=== PATIENT | female | born 1960 | race Caucasian/White ===

== ENCOUNTER 2018-08-12 11:22 | Emergency (ER) | payer OTHER ==
[2018-08-12 11:53] LABS: BASO % 0.5 % (0.0-1.0); EOS # 0.1 10^3/uL (0.0-0.50); EOS % 1.5 % (0.0-3.0); HEMATOCRIT 45.5 % (36.0-47.0); HEMOGLOBIN 14.4 g/dl (12.0-15.5); IMMATURE GRANULOCYTE % 0.7 % (0-3.0); MEAN CORPUSCULAR HEMOGLOBIN 28.3 pg (27.0-33.0); MEAN CORPUSCULAR HGB CONC 31.6 g/dl (32.0-36.5); MEAN CORPUSCULAR VOLUME 89.6 fl (80.0-96.0); MONO # 0.5 10^3/uL (0.0-0.8); MONO % 8.3 % (0.0-5.0); NEUTROPHILS # 4.2 10^3/uL (1.8-7.7); PLATELET COUNT, AUTOMATED 156 10^3/uL (150-450); RED BLOOD COUNT 5.08 10^6/uL (4.00-5.40); RED CELL DISTRIBUTION WIDTH 13.9 % (11.5-14.5); WHITE BLOOD COUNT 5.8 10^3/uL (4.0-10.0)
[2018-08-12 12:07] LABS: INR 0.86; PROTHROMBIN TIME 11.8 SECONDS (12.1-14.4)
[2018-08-12 12:08] LABS: PARTIAL THROMBOPLASTIN TIME 27.7 SECONDS (25.4-37.6)
[2018-08-12] MEDS: ASPIRIN 81 MG CHEW TABLET PO (12:14)
[2018-08-12 12:29] LABS: ALBUMIN 3.8 GM/DL (3.2-5.2); ALBUMIN/GLOBULIN RATIO 1.15 (1.00-1.93); ALKALINE PHOSPHATASE 90 U/L (45-117); ALT/SGPT 29 U/L (12-78); ANION GAP 6 MEQ/L (8-16); AST/SGOT 19 U/L (7-37); BILIRUBIN,DIRECT 0.2 MG/DL (0.0-0.2); BILIRUBIN,TOTAL 0.6 MG/DL (0.2-1.0); BLOOD UREA NITROGEN 9 MG/DL (7-18); CARBON DIOXIDE LEVEL 29 MEQ/L (21-32); CHLORIDE LEVEL 106 MEQ/L (98-107); CPK CREATINE PHOSPHOKINASE 85 U/L (26-192); CREATININE FOR GFR 0.65 MG/DL (0.55-1.30); FREE T4 0.89 NG/DL (0.76-1.46); GLOMERULAR FILTRATION RATE > 60.0 (>51); GLUCOSE, FASTING 84 MG/DL (70-100); LIPASE 105 U/L (73-393); MB/CK RELATIVE INDEX 1.53 (< OR =4); NT-PRO BNP 53 PG/ML (<125); POTASSIUM SERUM 4.4 MEQ/L (3.5-5.1); SODIUM LEVEL 141 MEQ/L (136-145); THYROID STIMULATING HORMONE 0.792 uIU/ML (0.358-3.740); TOTAL PROTEIN 7.1 GM/DL (6.4-8.2); TROPONIN I < 0.02 NG/ML (< 0.10)
[2018-08-12] MEDS ORDERED: ISOVUE-370 76% 100ML VIAL (Q9967) As Ordered (13:01)
[2018-08-12 15:37] LABS: CPK CREATINE PHOSPHOKINASE 76 U/L (26-192); MB/CK RELATIVE INDEX 1.45 (< OR =4); TROPONIN I < 0.02 NG/ML (< 0.10)
== END 2018-08-12 16:31 | disposition home or self-care (01) ==
LOC: M ED 11:22
DX: R07.89 Other chest pain (principal); T74.11XA Adult physical abuse, confirmed, initial encounter; Y07.03 Male partner, perpetrator of maltreatment and neglect; E11.9 Type 2 diabetes mellitus without complications; I10 Essential (primary) hypertension; J45.909 Unspecified asthma, uncomplicated; Z95.0 Presence of cardiac pacemaker; Z88.1 Allergy status to other antibiotic agents; Z91.048 Other nonmedicinal substance allergy status; Z79.899 Other long term (current) drug therapy; Z79.51 Long term (current) use of inhaled steroids
CPT/HCPCS: Q9967

== ENCOUNTER 2019-04-10 13:31 | Emergency (ER) | payer OTHER ==
[~2019-04-10] VITALS: Ht 167.6 cm; Wt 136.4 kg
[~2019-04-10 13:31] MED LIST: ADV250INH INH; ALBU17IN2 INH; AVEL1TAB3 PO; CALCTAB22; CALCTAB63 PO; CETI10TA; FLUO0.0114 AU; FURO20TA2 PO; KLOR1TAB69 PO; LASIX; M-VI27TA PO; MAALSUS8 PO; MECL1CHW PO; MIRA3350 PO; MIRALAX; PEPC20TA2; PERC5TAB8; POTA-77; PRED20TA PO; PRIL40CA PO; ROBISYP5 PO; TYLE325T5 PO; [UNRECOGNIZED DRUG - MIXTURE] PO; [UNRECOGNIZED DRUG - OTHER]
[2019-04-10] MEDS ORDERED: LORazepam 2 MG/ML VIAL (J2060) IV STA (14:38)
[2019-04-10] MEDS: IPRATROPIUM 0.5MG/ALBUTEROL 2.5MG INH SOL UD 3ML (DUONEB)(J7620) NEB SCH ×3 (15:03→15:57)
--- NOTE | 2019-04-10 15:38 | ECGEPIP ---
Stationary ECG Study [facility] - ED Test Date: 2019-04-10 Pat Name: TAHIR DON Department: Room: - Gender: F Management Coordinator: TIERA : 1960 Requested By: Srinivasa Rangel Order Number: [id number] Reading MD: Anne Ford Measurements Intervals [place] Rate: 87 P: 56 [place]: 131 QRS: 20 QRSD: 94 T: 44 QT: 355 QTc: 428 Interpretive Statements SINUS RHYTHM NSTTW ABNORMALITY INCREASED RATE 08/12/18 Electronically Signed On 04-10-2019 15:38:16 EDT by Anne Ford
[2019-04-10 17:09] VITALS: BP 144/65
[2019-04-10] MEDS ORDERED: MELO15TA28 PO (17:11)
[2019-04-10] MEDS ORDERED: BREO1INH3 INH (17:11)
[2019-04-10] MEDS ORDERED: PRED20TA PO (17:17)
== END 2019-04-10 17:35 | disposition home or self-care (01) ==
LOC: M ED 13:31
DX: J45.901 Unspecified asthma with (acute) exacerbation (principal); Z57.39 Occupational exposure to other air contaminants; G47.33 Obstructive sleep apnea (adult) (pediatric); E11.9 Type 2 diabetes mellitus without complications; I10 Essential (primary) hypertension; E78.5 Hyperlipidemia, unspecified; E66.9 Obesity, unspecified; Z87.891 Personal history of nicotine dependence; Z95.0 Presence of cardiac pacemaker; Z91.048 Other nonmedicinal substance allergy status; Z88.1 Allergy status to other antibiotic agents; Z79.899 Other long term (current) drug therapy; Z79.51 Long term (current) use of inhaled steroids
CPT/HCPCS: 93005; 94640; 96374; 99285; J2060

== ENCOUNTER 2019-04-30 13:39 | Emergency (ER) | payer OTHER ==
[~2019-04-30] VITALS: Ht 167.6 cm; Wt 136.4 kg
[~2019-04-30 13:39] MED LIST changes: +BREO1INH3 INH; +MELO15TA28 PO
[2019-04-30 14:27] LABS: BASO % 0.2 % (0.0-1.0); EOS % 0.1 % (0.0-3.0); HEMATOCRIT 39.4 % (36.0-47.0); HEMOGLOBIN 12.8 g/dl (12.0-15.5); LYMPH # 0.8 10^3/uL (1.5-4.5); LYMPH % 6.9 % (24.0-44.0); MEAN CORPUSCULAR HEMOGLOBIN 29.3 pg (27.0-33.0); MEAN CORPUSCULAR HGB CONC 32.5 g/dl (32.0-36.5); MEAN CORPUSCULAR VOLUME 90.2 fl (80.0-96.0); MONO # 0.7 10^3/uL (0.0-0.8); MONO % 6.3 % (0.0-5.0); NEUTROPHILS # 9.7 10^3/uL (1.8-7.7); PLATELET COUNT, AUTOMATED 154 10^3/uL (150-450); RED BLOOD COUNT 4.37 10^6/uL (4.00-5.40); WHITE BLOOD COUNT 11.3 10^3/uL (4.0-10.0)
[2019-04-30] MEDS ORDERED: IPRATROPIUM 0.5MG/ALBUTEROL 2.5MG INH SOL UD 3ML (DUONEB)(J7620) NEB ONE (14:30)
[2019-04-30] MEDS ORDERED: methylPREDNISolone INJ 125 MG/2 ML VIAL (J2930) IV ONE (14:30)
[2019-04-30] MEDS ORDERED: ALBUTEROL SULFATE 2.5 MG/0.5 ML INH NEB SOLN NEB ONE (14:30)
[2019-04-30 14:40] LABS: ABG BASE EXCESS 1.7 (-2.0-2.0); ABG HCO3 25.6 MEQ/L (22.0-26.0); ABG O2 SATURATION 95.8 % (95.0-99.0); ABG PARTIAL PRESSURE CO2 37.8 mmHg (35.0-45.0); ABG PARTIAL PRESSURE O2 76.6 mmHg (75.0-100.0); ABG TOTAL CO2 26.8 MEQ/L (22.0-29.0); ABG pH (ARTERIAL) 7.449 UNITS (7.350-7.450)
[2019-04-30 14:52] LABS: BLOOD UREA NITROGEN 9 MG/DL (7-18); CALCIUM LEVEL 8.4 MG/DL (8.5-10.1); CARBON DIOXIDE LEVEL 26 MEQ/L (21-32); CHLORIDE LEVEL 108 MEQ/L (98-107); CPK CREATINE PHOSPHOKINASE 61 U/L (26-192); CREATININE FOR GFR 0.69 MG/DL (0.55-1.30); GLOMERULAR FILTRATION RATE > 60.0 (>51); GLUCOSE, FASTING 111 MG/DL (70-100); MB/CK RELATIVE INDEX 1.64 (< OR =4); NT-PRO BNP 345 PG/ML (<125); POTASSIUM SERUM 4.2 MEQ/L (3.5-5.1); SODIUM LEVEL 143 MEQ/L (136-145)
--- NOTE | 2019-04-30 15:08 | REP ---
Clinical: Cough and shortness of breath . Comparison: 10/17/2018 . Technique: AP and lateral. Findings: The mediastinum and cardiac silhouette are normal. The lung dumont are clear and without acute consolidation, effusion, or pneumothorax. The skeletal structures are intact and normal. Impression: 1. No definite acute cardiopulmonary process. Electronically Signed by Joao Mcmahan MD 04/30/2019 03:00 P
[2019-04-30 15:49] LABS: TROPONIN I < 0.02 NG/ML (< 0.10)
[2019-04-30 16:30] VITALS: BP 136/78
[2019-04-30] MEDS ORDERED: PRED10TA2 PO (16:30)
[2019-04-30] MEDS ORDERED: AUGM875T28 PO (16:30)
--- NOTE | 2019-04-30 19:42 | ECGEPIP ---
[facility] - ED Test Date: 2019-04-30 Pat Name: TAHIR DON Department: Room: - Gender: Female Event Set Up Specialist: JRosa : 1960 Requested By: Delia Valles Order Number: [id number] Reading MD: Deila Valles Measurements Intervals [place] Rate: 104 P: 4 [place]: 135 QRS: QRSD: 89 T: 46 QT: 325 QTc: 428 Interpretive Statements ELECTRONIC VENTRICULAR PACEMAKER DEMAND ABNORMAL RHYTHM ECG NONSPECIFIC ST T WAVE CHANGES 04/10/[address] T WAVE CHANGES Electronically Signed on 04-30-2019 19:41:48 EDT by Delia Valles
== END 2019-04-30 16:56 | disposition home or self-care (01) ==
LOC: M ED 13:39
DX: J45.901 Unspecified asthma with (acute) exacerbation (principal); J01.90 Acute sinusitis, unspecified; Z98.84 Bariatric surgery status; Z88.1 Allergy status to other antibiotic agents; Z91.048 Other nonmedicinal substance allergy status; Z79.899 Other long term (current) drug therapy; Z87.891 Personal history of nicotine dependence
CPT/HCPCS: 36415; 36600; 71046; 80048; 82550; 82553; 82803; 83880; 84484; 85025; 93005; 94640; 96374; 99285; J2930

== ENCOUNTER → 2019-06-05 | Outpatient (REF) | payer OTHER ==
[~2019-06-05] MED LIST changes: +AUGM875T28 PO; +PRED10TA2 PO
[2019-06-05 13:35] LABS: BASO % 0.8 % (0.0-1.0); EOS # 0.1 10^3/uL (0.0-0.50); EOS % 1.1 % (0.0-3.0); HEMATOCRIT 46.1 % (36.0-47.0); HEMOGLOBIN 15.1 g/dl (12.0-15.5); LYMPH # 1.3 10^3/uL (1.5-4.5); LYMPH % 28.3 % (24.0-44.0); MEAN CORPUSCULAR HEMOGLOBIN 30.6 pg (27.0-33.0); MEAN CORPUSCULAR HGB CONC 32.8 g/dl (32.0-36.5); MEAN CORPUSCULAR VOLUME 93.5 fl (80.0-96.0); MONO # 0.4 10^3/uL (0.0-0.8); MONO % 9.1 % (0.0-5.0); NEUTROPHILS # 2.9 10^3/uL (1.8-7.7); NEUTROPHILS % 60.1 % (36.0-66.0); RED BLOOD COUNT 4.93 10^6/uL (4.00-5.40); WHITE BLOOD COUNT 4.7 10^3/uL (4.0-10.0)
[2019-06-08 14:22] LABS: D001-IgE D pteronyssinus 3.15 kU/L (Class III); G002-IgE Bermuda Grass < 0.10 kU/L (Class 0); G008-IgE Kentucky Bluegrass < 0.10 kU/L (Class 0); M001-IgE Penicillium chrysogen < 0.10 kU/L (Class 0); M002 IgE Cladosporium herbaru < 0.10 kU/L (Class 0); M003 IgE Aspergillus fumigatu < 0.10 kU/L (Class 0); M006-IgE Alternaria alternata < 0.10 kU/L (Class 0); T001-IgE Maple/Box Elder < 0.10 kU/L (Class 0); T003-IgE Common Silver Birch < 0.10 kU/L (Class 0); T006-IgE Cedar, Mountain < 0.10 kU/L (Class 0); T007-IgE Oak, White < 0.10 kU/L (Class 0); T008-IgE Elm, American < 0.10 kU/L (Class 0); T015-IgE Ash, White < 0.10 kU/L (Class 0); T041-IgE Hickory, White < 0.10 kU/L (Class 0); T070-IgE White Mulberry < 0.10 kU/L (Class 0); W001-IgE Ragweed, Short < 0.10 kU/L (Class 0); W009-IgE Plantain, English < 0.10 kU/L (Class 0); W014-IgE Pigweed, Rough < 0.10 kU/L (Class 0); W018-IgE Sheep Sorrel < 0.10 kU/L (Class 0)
== END ==
LOC: M LAB REF 13:14
PROVIDERS: ATTEND Internal Medicine Pulmonary Disease
DX: J45.50 Severe persistent asthma, uncomplicated (principal)

== ENCOUNTER 2019-07-16 16:44 | Emergency (ER) | payer OTHER ==
[~2019-07-16] VITALS: Ht 167.6 cm; Wt 145.0 kg
[2019-07-16] MEDS ORDERED: ADV500INH INH (16:54)
[2019-07-16] MEDS ORDERED: MORPHINE 4 MG/ML 1ML VIAL/SYRINGE (J2270) IV ONE (17:15)
[2019-07-16] MEDS ORDERED: ONDANSETRON 4MG/2ML VIAL (J2405) IV ONE (17:15)
[2019-07-16 17:47] LABS: BASO % 0.5 % (0.0-1.0); EOS # 0.1 10^3/uL (0.0-0.50); EOS % 1.7 % (0.0-3.0); HEMATOCRIT 42.4 % (36.0-47.0); HEMOGLOBIN 13.1 g/dl (12.0-15.5); LYMPH # 1.3 10^3/uL (1.5-4.5); MEAN CORPUSCULAR HEMOGLOBIN 28.4 pg (27.0-33.0); MEAN CORPUSCULAR HGB CONC 30.9 g/dl (32.0-36.5); MEAN CORPUSCULAR VOLUME 91.8 fl (80.0-96.0); MONO # 0.5 10^3/uL (0.0-0.8); MONO % 8.5 % (0.0-5.0); NEUTROPHILS # 4.4 10^3/uL (1.8-7.7); PLATELET COUNT, AUTOMATED 250 10^3/uL (150-450); RED BLOOD COUNT 4.62 10^6/uL (4.00-5.40); WHITE BLOOD COUNT 6.3 10^3/uL (4.0-10.0)
[2019-07-16 18:06] LABS: BLOOD UREA NITROGEN 10 MG/DL (7-18); CALCIUM LEVEL 8.8 MG/DL (8.5-10.1); CARBON DIOXIDE LEVEL 29 MEQ/L (21-32); CHLORIDE LEVEL 107 MEQ/L (98-107); CREATININE FOR GFR 0.84 MG/DL (0.55-1.30); GLOMERULAR FILTRATION RATE > 60.0 (>51); GLUCOSE, FASTING 99 MG/DL (70-100); POTASSIUM SERUM 4.4 MEQ/L (3.5-5.1); SODIUM LEVEL 143 MEQ/L (136-145)
[2019-07-16] MEDS ORDERED: CLINDAMYCIN 900 MG in APPROPRIATE DILUENT 1 EA IV ONE (19:00)
[2019-07-16] MEDS ORDERED: PERCOCET 5MG/325MG TAB PO ONE (20:30)
--- NOTE | 2019-07-16 21:04 | REPVR ---
EXAM: US Duplex Right Lower Extremity Veins, Limited EXAM DATE/TIME: 07/16/2019 8:23 PM CLINICAL HISTORY: 58 years old, female; Pain; Leg, upper and leg, lower; Right; Additional info: Rlight leg pain TECHNIQUE: Imaging protocol: Real-time Duplex ultrasound of the Right Lower Extremity with 2-D gilbert scale, color Doppler flow and spectral waveform analysis with image documentation. Limited exam was focused on the right lower extremity veins. COMPARISON: US Duplex, Ext,LOWER veins,unilat 10/06/2016 6:00 PM FINDINGS: Right deep veins: Unremarkable. The common femoral, femoral, proximal profunda femoral and popliteal veins are patent without thrombus. Normal Doppler waveforms. Normal compressibility and/or augmentation response. Some decrease in visualization of the femoral vein at Rick's canal secondary to the patient's inability to have this area compressed Right superficial veins: Unremarkable. Saphenofemoral junction is patent without thrombus. Soft tissues: Unremarkable. IMPRESSION: No acute findings. No evidence of deep vein thrombosis. Electronically signed by: Florian Joseph On 07/16/2019 21:03:56 PM
[2019-07-16] MEDS ORDERED: DOXY100C37 PO (22:11)
[2019-07-16] MEDS ORDERED: NAPR-837 PO (22:11)
[2019-07-16] MEDS ORDERED: OXYCODONE/APAP 5MG/325MG(BULK FOR ED) 1 TABLET PO ONE (22:15)
[2019-07-16] MEDS ORDERED: NAPROXEN 250 MG TAB PO ONE (22:15)
[2019-07-16 22:41] VITALS: BP 155/77
--- NOTE | 2019-07-17 12:04 | REP ---
RIGHT FOOT COMPLETE: 07/16/2019. Clinical history: Trauma, rule out fracture. Technique: Four views are provided. No prior foot series. Findings: Posterior calcaneus has plantar and Achilles insertion spurs unchanged from a prior tibia-fibula series 2 years ago. The talonavicular and calcaneocuboid joints are normal. Subtalar joints intact. Tarsal bones, metatarsals and phalanges were intact. No avulsion or fracture visible. Degenerative changes at the first MTP joint and some of the IP joints. Impression: 1. Posterior calcaneal spurs, some minor degenerative changes at the ankle as well as the first MTP and some IP joints. No visible displaced fracture. Electronically Signed by Terry Mccarthy MD 07/17/2019 12:22 P
--- NOTE | 2019-07-17 12:05 | REP ---
RIGHT TIBIA-FIBULA: 07/16/2019 COMPARISON: 09/18/2016 CLINICAL HISTORY: Trauma, rule out fracture. Four views show prominent plantar and Achilles insertional spurs on the posterior calcaneus. Subtalar joints intact. Shafts of the tibia and fibula are intact. Proximal and distal articular aspects of the tibia and fibula at the knee and ankle were without fracture. Spurs in the tibial spine medially. There are soft tissue calcifications suggesting phleboliths in the calf and lower thigh. IMPRESSION: 1. No visible or displaced fracture about the tibia and fibula. Electronically Signed by Terry Mccarthy MD 07/17/2019 12:22 P
== END 2019-07-16 22:43 | disposition home or self-care (01) ==
LOC: M ED 16:44
DX: M79.661 Pain in right lower leg (principal); I10 Essential (primary) hypertension; E11.9 Type 2 diabetes mellitus without complications; K21.9 Gastro-esophageal reflux disease without esophagitis; Z98.84 Bariatric surgery status; J30.89 Other allergic rhinitis; Z88.1 Allergy status to other antibiotic agents; Z91.048 Other nonmedicinal substance allergy status; Z87.891 Personal history of nicotine dependence
CPT/HCPCS: 73590; 73630; 80048; 85025; 93971; 96365; 96375; 99284; J2270; J2405

== ENCOUNTER → 2019-09-09 | Outpatient (CLI) | payer OTHER ==
[~2019-09-09] MED LIST changes: +ADV500INH INH; +DOXY100C37 PO; +NAPR-837 PO
--- NOTE | 2019-09-16 09:11 | SLEEPCENT ---
DATE OF STUDY: 09/09/2019 ORDERED BY: Irene Burton Nocturnal polysomnography was performed for evaluation of sleep physiology in this patient with a history of obstructive sleep apnea syndrome who has effected significant weight loss. 7 hours and 58 minutes of data were reviewed. There were 369 minutes of sleep identified. Sleep latency was mildly prolonged at 18.5 minutes. Rapid eye movement (REM) latency was short at 73.5 minutes. Sleep architecture showed fragmentation. There were 3 REM cycles noted. Overall sleep efficiency was 78.2%. The electrocardiogram showed a sinus rhythm with an average heart rate of 78 beats per minute. Electroencephalogram (EEG) showed mild coarsening in background, otherwise normal waveforms for awake and sleep. There were 177 respiratory events identified of 10 seconds in duration or greater for an apnea-hypopnea index of 28.3. The events were obstructive, not exclusive to sleep stage, but REM clustering was seen, not exclusive to body posture. Arousals from respiratory events occurred 7.2 times per hour and oxygen desaturations were seen into the 70s. There was limited activity in the limb leads. Snoring was noted and remaining measures of sleep physiology were normal. IMPRESSION: Obstructive sleep apnea syndrome (G47.33), apnea-hypopnea index 28.8. RECOMMENDATION: The patient should be encouraged to return to the sleep disorder center for pressure therapy. In the interim, alcohol and sedative avoidance should be practiced and caution exercised during the operation of motor vehicles.
== END ==
LOC: M SLEEP 20:00
PROVIDERS: ATTEND Nurse Practitioner Adult Health
DX: G47.33 Obstructive sleep apnea (adult) (pediatric) (principal)

== ENCOUNTER → 2019-11-09 | Outpatient (REF) | payer OTHER | LOC: M LAB REF 12:58 | PROVIDERS: ATTEND Nurse Practitioner Adult Health | DX: J45.51 Severe persistent asthma with (acute) exacerbation (principal) ==

== ENCOUNTER → 2019-11-30 | Outpatient (CLI) | payer OTHER ==
--- NOTE | 2019-12-05 00:14 | SLEEPCENT ---
DATE OF PROCEDURE: 11/30/2019 ORDERED BY: CAMILLE Weaver Nocturnal polysomnography was performed for the titration of pressure therapy in this patient with obstructive sleep apnea syndrome, apnea-hypopnea index 28.8. For testing the patient was fit with a [employer] full face mask of small size, 4 cm of water pressure were applied to the circuit and the lights were extinguished. 7 hours and 52 minutes of data were reviewed. There were 394 minutes of sleep identified. Sleep latency was normal at 14.5 minutes. Rapid eye movement (REM) latency was short at 53 minutes. Sleep architecture was good with five REM cycles. Overall sleep efficiency was 85.4%. The patient's electrocardiogram showed a sinus rhythm with an average heart rate of 78 beats per minute. EEG showed normal waveforms for awake and sleep. Respiratory events were fully palliated with continuous positive airway pressure (CPAP) at a pressure of +7. There was minimal activity noted in the limb leads and remaining measures of sleep physiology were normal. IMPRESSION: Obstructive sleep apnea syndrome (G47.33). RECOMMENDATIONS: Nightly use of pressure therapy 7 cm of water.
== END ==
LOC: M SLEEP 19:49
PROVIDERS: ATTEND Nurse Practitioner Adult Health
DX: G47.33 Obstructive sleep apnea (adult) (pediatric) (principal)

== ENCOUNTER 2020-06-03 16:20 | Emergency (ER) | payer OTHER ==
[~2020-06-03] VITALS: Ht 167.6 cm; Wt 159.4 kg
[2020-06-03 16:20] VITALS: BP 189/86
[2020-06-03] MEDS ORDERED: ALBU8.5H (16:26)
[2020-06-03] MEDS ORDERED: FLUT1BLS6 (16:26)
[2020-06-03] MEDS ORDERED: SPIR12.9 (16:26)
[2020-06-03] MEDS ORDERED: MUCINEX OTC (16:26)
[2020-06-03] MEDS ORDERED: FLON1SPR NARES (17:18)
== END 2020-06-03 17:36 | disposition home or self-care (01) ==
LOC: M ED 16:20
DX: H65.01 Acute serous otitis media, right ear (principal); Z88.1 Allergy status to other antibiotic agents; Z91.048 Other nonmedicinal substance allergy status; J45.909 Unspecified asthma, uncomplicated; Z95.0 Presence of cardiac pacemaker; E11.9 Type 2 diabetes mellitus without complications; F32.9 Major depressive disorder, single episode, unspecified; Z79.899 Other long term (current) drug therapy

== ENCOUNTER 2020-09-26 08:59 | Emergency (ER) | payer OTHER ==
[~2020-09-26] VITALS: Ht 167.6 cm; Wt 159.1 kg
[~2020-09-26 08:59] MED LIST changes: +ALBU8.5H; +FLON1SPR NARES; +FLUT1BLS6; +MUCINEX OTC; +SPIR12.9
[2020-09-26] MEDS ORDERED: ADVI200C8 PO (09:15)
[2020-09-26] MEDS ORDERED: traMADol 50 MG TAB PO ONE (09:15)
[2020-09-26] MEDS ORDERED: ACETAMINOPHEN TAB 650MG DOSE (2X325MG) PO ONE (09:15)
--- NOTE | 2020-09-26 10:08 | REP ---
INDICATION: trauma, lateral pain COMPARISON: None. TECHNIQUE: Four views obtained. FINDINGS: There is a nondisplaced somewhat comminuted fracture of the lateral malleolus. There is mild associated soft tissue swelling. There is mild widening of the lateral ankle mortise. There is moderate posterior and inferior calcaneal spurring. There is a tiny dorsal navicular spur. Multiple phleboliths are seen in the soft tissues of the lower leg. IMPRESSION: Nondisplaced somewhat comminuted fracture lateral malleolus. There is mild widening of the lateral ankle mortise. <Electronically signed by Ross Silva > 09/26/20 1007
[2020-09-26] MEDS ORDERED: NAPROXEN 250 MG TAB PO ONE (11:00)
[2020-09-26] MEDS ORDERED: NORC1TAB7 PO ×2 (11:37→12:09)
[2020-09-26] MEDS ORDERED: NAPR-837 PO (11:37)
[2020-09-26 12:03] VITALS: BP 142/80
== END 2020-09-26 12:27 | disposition home or self-care (01) ==
LOC: M ED 08:59
DX: S82.64XA Nondisplaced fracture of lateral malleolus of right fibula, initial encounter for closed fracture (principal); S33.5XXA Sprain of ligaments of lumbar spine, initial encounter; S13.4XXA Sprain of ligaments of cervical spine, initial encounter; W01.198A Fall on same level from slipping, tripping and stumbling with subsequent striking against other object, initial encounter; Y92.480 Sidewalk as the place of occurrence of the external cause; Y93.01 Activity, walking, marching and hiking; Y99.8 Other external cause status; I10 Essential (primary) hypertension; Z95.0 Presence of cardiac pacemaker; J45.909 Unspecified asthma, uncomplicated; K21.9 Gastro-esophageal reflux disease without esophagitis; E11.9 Type 2 diabetes mellitus without complications; M19.90 Unspecified osteoarthritis, unspecified site; F32.9 Major depressive disorder, single episode, unspecified; Z88.1 Allergy status to other antibiotic agents; Z91.048 Other nonmedicinal substance allergy status; Z79.899 Other long term (current) drug therapy

== ENCOUNTER → 2021-07-10 | Outpatient (CLI) | payer OTHER ==
[~2021-07-10] MED LIST changes: +ADVI200C8 PO; -DOXY100C37 PO; +DOXY1CAP62 PO; +ELIQ5TAB PO; +KEFL500C17 PO; +NORC1TAB7 PO
--- NOTE | 2021-07-10 11:50 | REP ---
INDICATION: SEVERE PERSISTENT ASTHMA WITH (ACUTE) EXACERBATION. COMPARISON: 04/30/2019 TECHNIQUE: PA and lateral views FINDINGS: The lungs are clear. The heart is enlarged. Dual pacing leads are in place. There is no failure or effusion. When compared to the previous study there has been no interval change. IMPRESSION: No active process. No interval change. <Electronically signed by Rubin Hook > 07/10/21 [id number]
[2021-07-10 13:37] LABS: BASO % 0.9 % (0.0-1.0); EOS # 0.1 10^3/uL (0.0-0.5); EOS % 1.4 % (0.0-3.0); HEMATOCRIT 40.6 % (36.0-47.0); HEMOGLOBIN 12.8 g/dl (12.0-15.5); LYMPH # 0.9 10^3/uL (1.5-5.0); LYMPH % 21.1 % (24.0-44.0); MEAN CORPUSCULAR HEMOGLOBIN 28.8 pg (27.0-33.0); MEAN CORPUSCULAR HGB CONC 31.5 g/dl (32.0-36.5); MEAN CORPUSCULAR VOLUME 91.2 fl (80.0-96.0); MONO # 0.4 10^3/uL (0.0-0.8); MONO % 8.6 % (2.0-8.0); NEUTROPHILS % 67.8 % (36.0-66.0); RED BLOOD COUNT 4.45 10^6/uL (4.00-5.40); WHITE BLOOD COUNT 4.4 10^3/uL (4.0-10.0)
== END ==
LOC: M RAD 10:23
PROVIDERS: ATTEND Internal Medicine Pulmonary Disease
DX: J45.51 Severe persistent asthma with (acute) exacerbation (principal)

== ENCOUNTER 2021-07-22 09:27 | Inpatient (IN) | payer OTHER ==
[~2021-07-22] VITALS: Ht 167.6 cm; Wt 151.0 kg
[2021-07-22] MEDS: LEVEMIR (INSULIN DETEMIR) 1 UNITS/0.01ML SC SCH (09:00)
--- NOTE | 2021-07-22 10:02 | REP ---
INDICATION: CHEST PAIN COMPARISON: 07/10/2021 TECHNIQUE: Portable AP view of the chest FINDINGS: The mediastinum and cardiac silhouette are stable and within normal limits for portable technique. The lung dumont are clear without acute consolidation, effusion, or pneumothorax. Skeletal structures are intact. IMPRESSION: No acute cardiopulmonary process appreciated. <Electronically signed by Joao Mcmahan > 07/22/21 0958
[2021-07-22 10:04] LABS: BASO % 0.4 % (0.0-1.0); EOS % 0.4 % (0.0-3.0); HEMATOCRIT 39.3 % (36.0-47.0); HEMOGLOBIN 12.3 g/dl (12.0-15.5); LYMPH # 0.7 10^3/uL (1.5-5.0); LYMPH % 8.2 % (24.0-44.0); MEAN CORPUSCULAR HEMOGLOBIN 27.7 pg (27.0-33.0); MEAN CORPUSCULAR HGB CONC 31.3 g/dl (32.0-36.5); MEAN CORPUSCULAR VOLUME 88.5 fl (80.0-96.0); MONO # 0.6 10^3/uL (0.0-0.8); MONO % 7.7 % (2.0-8.0); NEUTROPHILS # 6.8 10^3/uL (1.5-8.5); NEUTROPHILS % 82.6 % (36.0-66.0); PLATELET COUNT, AUTOMATED 180 10^3/uL (150-450); RED BLOOD COUNT 4.44 10^6/uL (4.00-5.40); WHITE BLOOD COUNT 8.2 10^3/uL (4.0-10.0)
--- OUTSIDE RECORDS SUMMARY | 2021-07-22 10:47 | CCD | Continuity of Care Document ---
Author Author Koki DERAS PA-C Organization Unknown Address [address] [place] [address], [place] [address] Phone [phone] Care Team Providers Care Die Assembler Name Role Phone Raul Hassan DO AUTM [phone] Corby Vinson AUTM [phone] Shabbir Justin Jerry DO AUTM [phone] Problems Active Problems Provider Date Electrocardiogram abnormal FANNIE Hernandez Onset : 01/25/2012 Aortic valve disorder FANNIE Hernandez Onset: 08/2012 Mitral valve disorder FANNIE Hernandez Onset: 08/2012 Chronic pulmonary heart disease FANNIE Hernandez Onset: 01/25/2012 Obesity FANNIE Hernandez Onset: 01/25 Sinus node dysfunction FANNIE Hernandez Onset: Cardiac pacemaker in situ FANNIE Hernandez Onset: 01/25/2012 Morbid obesity Chetna Deras PA-C Onset: 02/21/2015 Dietary management surveillance CORTES Carbajal Onset: 08/16/2018 Precordial pain CORTES Carbajal Onset: 08/16/2018 Ascending aorta dilatation Chetna Deras PA-C Onset: 09/16 Obstructive sleep apnea syndrome Chetna Deras PA-C Onset: 09/16/2020 Social History Type Date Description Comments Sex Unknown Tobacco Use Start: Unknown End: Unknown Former Cigarette Smo ker 1 Pack Daily hx of quit 1988 ETOH Use Consumes Beer 1-2 socially occ asionally Tobacco Use Start: Unknown End: Unknown Patient is a former smoker up to 1ppd x 15 yrs, quit 1988 Smoking Status Reviewed: 09/16/20 Patient is a former smoker up to 1ppd x 15 yrs, quit 1988 Exercise Type/Frequency Does housework daily Exercise Limitations Shortness Of Breath Exercise Limitations Orthopedic Problem left leg Allergies, Adverse Reactions, Alerts Active Allergies Reaction Severity Comments Date Lyrica depression 08/27/2015 Inactive Allergies NKDA 03/29/2009 Medications Active Medications SIG Qnty Indications Ordering Provide r Date Mucinex DM 30-600mg Tablets ER 12H R 1 by mouth every 12 hours as directed, as needed Rech Justin lara, DO 09/15/2020 Wixela Inhub 500-50mcg/Dose Aeroso l inhale 1 puff 2 times per day Justin Shea, DO 08/29 Spiriva Respimat 2.5mcg/Act Aeroso l 2 inhalations once daily Justin Shea, DO 08/29 Fluticasone Propionate 50mcg/Act Suspension 1 spray each nostril twice daily as needed Justin Shea, DO 09/15/2020 Albuterol Sulfate (2 .5mg/3ML) 0.083% Nebulizer every 4 hours as needed Justin Shea, DO 09/15/2020 Zyrtec-D Allergy & Congestion 5-120mg Tablets ER 12HR 1 by mouth twice daily as needed Unknown 09/19/2018 Ventolin HFA 108(90Base) mcg/Act A erosol 2 puffs as needed Corby Vinson PA 09/19/2018 Benadryl Allergy 25mg Tablets one tab by mouth every day, as needed Unknown 08/15 Aleve 220mg Tablets 1 by mouth twice daily as needed Unknown 08/15/2018 Immunizations Description No Information Available Vital Signs Date Vital Result Comment 09/16/2020 12:46pm Weight 344.00 lb Height 66 inches 5'6" BMI (Body Mass Index) 55.5 kg/m2 Heart Rate 76 /min Regular Respiratory Rate 16 /min BP Systolic Right Arm 130 mmHg sitting, large cuf f BP Diastolic Right Arm 74 mmHg sitting, large cu ff BP Systolic Left Arm 126 mmHg sitting BP Diastolic Left Arm 74 mmHg sitting 09/20/2018 10:28am Weight 304.00 lb Height 66 inches 5'6" BMI (Body Mass Index) 49.1 kg/m2 Results Description No Information Available Procedures Date Code Description Status 01/09/2021 70866 Pacer Interrogation Any Leads Co mpleted Medical Devices Description No Information Available Encounters Type Date Location Provider Dx Diagnosis Office Visit 05/02/2021 9:30a Main Office Chetna Deras PA-C I49.5 Sick sinus syndrome Assessments Date Code Description Provider 05/02/2021 I49.5 Sick sinus syndrome Chetna villagran PA-C 01/09/2021 I49.5 Sick sinus syndrome Chetna villagran PA-C Plan of Treatment Future Appointment(s):* 09/18/2021 10:45 am - Chetna Deras PA-C at Main Office 09/16/2020 - Chetna Deras PA-C* R94.31 Abnormal electrocardiogram [ECG] [EKG] * I35.1 Nonrheumatic aortic (valve) insufficiency * I34.0 Nonrheumatic mitral (valve) insufficiency * I77.810 Thoracic aortic ectasia * I27.81 Cor pulmonale (chronic) * I49.5 Sick sinus syndrome * Z95.0 Presence of cardiac pacemaker * G47.33 Obstructive sleep apnea (adult) (pediatric) * Z71.3 Dietary counseling and surveillance* Recommendations:* Follow a low fat/low cholesterol diet and do as much aerobic exercise as you can tolerate. * All * Follow up:* 3 month pacer check. 12 month follow up. Obtain last labs from [facility], done in May. Functional Status Functional Condition Comment Date Status Independent with all ADL's Activ e Mental Status Description No Information Available Referrals Description No Information Available
--- OUTSIDE RECORDS SUMMARY | 2021-07-22 10:47 | CCD | Continuity of Care Document ---
Author Author Koki SHEA DO Organization Unknown Address [address] [place] [address] Phone [phone] Care Team Providers Care Dealer Compliance Representative Name Role Phone Corby Vinson AUTM [phone] Raul Hassan D.O. AUTM [phone] Problems Active Problems Provider Date Allergic asthma without status asthmaticus Onset: 02/09/2014 Benign paroxysmal positional vertigo Josef Martinez MD Ons et: 02/11/2016 Sensorineural hearing loss, bilateral Josef Martinez MD On set: 02/11/2016 Chronic rhinitis Josef Martinez MD Onset: 02/11/2016 Paroxysmal tachycardia Justin Shea DO Onset: Exacerbation of severe persistent asthma Geno Good Onset: 07/10/2021 Social History Type Date Description Comments Sex Unknown Tobacco Use Start: Unknown End: Unknown Quit ETOH Use 2-3 A Week Tobacco Use Start: Unknown Non Smoker Recreational Drug Use Denies Drug Use Smoking Status Reviewed: 07/10/21 Non Smoker Allergies, Adverse Reactions, Alerts Active Allergies Criticality Reaction | Severity Comments Date NKDA Unable to assess criticality 02/11/2016 Hay Fever Unable to assess criticality 02/09/2014 Animals Unable to assess criticality 02/09/2014 Environmental Unable to assess criticality 02/09/2014 No Known Drug Allgy Unable to assess criticality 05/15/2008 Medications Active Medications SIG Qnty Indications Ordering Provide r Date Prednisone 10mg Tablets 20mg by mouth x5days, 10mg by mouth x5 days, 5mg by mouth x5days then stop 20tabs J45.51 Justin Shea DO 07/10/2021 Advair HFA 230-21mcg/Act Aerosol 2 puff twice a day 36gm Justin Shea, DO 01/08/2021 Super 8 Vitamin 1 tab by mouth every day Unknow n Benadryl Allergy 25mg Capsules 2 tabs at bedtime Unknown Zyrtec Allergy 10mg Tablets p rn Unknown CPAP Device 7cm Marras Unknown Spiriva Respimat 2.5mcg/Act Aeroso l 2 puffs every day 12gm Justin Shea, DO Ventolin HFA 108(90Base) mcg/Act A erosol Inhale 2 Puffs 4 Times Daily as Needed 54units Justin Shea, DO Flonase Allergy Relief 50mcg/Act Suspension 1 spray each nostril twice a day 29.7ml Justin Shea, DO Immunizations Description No Information Available Vital Signs Date Vital Result Comment 07/10/2021 8:43am BP Systolic 148 mmHg BP Diastolic 100 mmHg Heart Rate 144 /min O2 % BldC Oximetry 99 % Height 66 inches 5'6" Welda Body Weight 130 lb 02/06/2021 10:37am BP Systolic 132 mmHg BP Diastolic 80 mmHg Heart Rate 87 /min O2 % BldC Oximetry 94 % Height 66 inches 5'6" Weight 360.00 lb BMI (Body Mass Index) 58.1 kg/m2 [place] Body Weight 130 lb Weight 163.296 kg BSA (Body Surface Area) 2.57 m2 Results Test Acquired Date Facility Test Result H/L Range Note CBC With Differential 07/10/2021 [facility] Main Lab [address] [place], [place] [id number] [phone] White Blood Count 4.4 10 Normal 4.0-10.0 Red Blood Count 4.45 10 Normal 4.00-5.40 Hemoglobin 12.8 g/dL Normal 12.0-15.5 Hematocrit 40.6 % Normal 36.0-47.0 Mean Corpuscular Volume 91.2 fl Normal 80.0-96.0 Mean Corpuscular Hemoglobin 28.8 pg Normal 27.0-33.0 Mean Corpuscular HGB Conc 31.5 g/dL Low 32.0-36.5 Red Cell Distribution Width 14.8 % High 11.5-14.5 Platelet Count, Automated TNP 10 Normal 150-450 1 Neutrophils % 67.8 % High 36.0-66.0 Lymph % 21.1 % Low 24.0-44.0 [place] % 8.6 % High 2.0-8.0 Eos % 1.4 % Normal 0.0-3.0 Baso % 0.9 % Normal 0.0-1.0 Immature Granulocyte % 0.2 % Normal 0-3.0 Nucleated Red Blood Cell % 0.0 % Normal 0-0 Neutrophils # 3.0 10 Normal 1.5-8.5 Lymph # 0.9 10 Low 1.5-5.0 [place] # 0.4 10 Normal 0.0-0.8 Eos # 0.1 10 Normal 0.0-0.5 Baso # 0.0 10 Normal 0.0-0.2 Rast/Ige, Pulmonary 07/10/2021 [facility] nter Main Lab [address] [place] [address] [phone] Immunoglobulin E 28.9 IU/mL Normal <100 Rast Zone 1 Region Allergen Panel (Inclu 07/10/2021 [facility] Main Lab [address] [place] [address] [phone] Class Description (SEE NOTE) Normal . 2 Y951-HtC D pteronyssinus 1.29 kU/L Abnormal Class II Q280-PnR D farinae Mite 1.15 kU/L Abnormal Class II V231-NxL Cat Epith/Dander < 0.10 kU/L Normal Class 0 T676-UnO Dog Dander 0.11 kU/L Abnormal Class 0/I A645-ZrJ B[place] Grass < 0.10 kU/L Normal Class 0 P912-DvB [place] Bluegrass < 0.10 kU/L Normal Class 0 Y158-YqI [place] Grass < 0.10 kU/L Normal Class 0 H353-DlC Cockroach, Greek < 0.10 kU/L Normal Class 0 A278-CdP Penicillium chrysogen < 0.10 kU/L Normal Class 0 M002 IgE Cladosporium herbaru < 0.10 kU/L Normal Class 0 M003 IgE Aspergillus fumigatu < 0.10 kU/L Normal Class 0 D630-VkY Mucor racemosus < 0.10 kU/L Normal Class 0 T607-DkW Alternaria alternata < 0.10 kU/L Normal Class 0 F175-QrC Stemphylium Herbarum < 0.10 kU/L Normal Class 0 V601-DwB Common Silver Birch < 0.10 kU/L Normal Class 0 K350-ZbF [place], White < 0.10 kU/L Normal Class 0 E693-EvK Elm, Greek < 0.10 kU/L Normal Class 0 I801-RvY Madhu, White < 0.10 kU/L Normal Class 0 S887-AcG Maple/Pride < 0.10 kU/L Normal Class 0 V309-DgE Hazelnut Tree < 0.10 kU/L Normal Class 0 M977-PiJ [place], White < 0.10 kU/L Normal Class 0 L252-CnX White [place] < 0.10 kU/L Normal Class 0 U191-CsZ [place], Mountain < 0.10 kU/L Normal Class 0 L504-YwH Ragweed, Short < 0.10 kU/L Normal Class 0 N572-YsB Mugwort < 0.10 kU/L Normal Class 0 J551-CwM Plantain, Luxembourgish < 0.10 kU/L Normal Class 0 E145-PmX Pigweed, Rough < 0.10 kU/L Normal Class 0 Z218-PqV Sheep [place] < 0.10 kU/L Normal Class 0 M400-RnW Nettle < 0.10 kU/L Normal Class 0 3 1 Platelet count invalid due t o platelet clumping. Suggest ordering platelet blue test to confirm clumping is not due to EDTA. 2 . Levels of Specific IgE Class Description of Class ----- ---- < 0.10 0 Negative 0.10 - 0.31 0/I Equivoc al/Low 0.32 - 0.55 I Low 0.56 - 1.40 II Moderat e 1.41 - 3.90 III High 3.91 - 19.00 IV Very Hi gh 19.01 - 100.00 V Very H igh >100.00 Very High 3 Performed at: [facility] [id number] Director Nurses' Registry: Vicente Brandt MD, Phone: [phone] Procedures Date Code Description Status 07/10/2021 12486 Office/Outpatient Established Mo d MDM 30-39 Min Completed 04/02/2021 83698 Records Release Fee Completed 02/06/2021 22620 Office/Outpatient Established Lo w MDM 20-29 Min Completed Medical Devices Description No Information Available Encounters Type Date Location Provider Dx Diagnosis Office Visit 07/10/2021 9:00a [facility] Geno Shea DO J45.51 Severe persistent asthma wit h (acute) exacerbation Z57.39 Occupational exposure to oth er air contaminants I47.9 Paroxysmal tachycardia, unsp ecified Office Visit 02/06/2021 10:30a [facility] CAMILLE Daniel G47.33 Obstructive sleep apnea (adult) (pediatr ic) Assessments Date Code Description Provider 07/10/2021 J45.51 Severe persistent asthma with (a cute) exacerbation Justin Shea DO 07/10/2021 Z57.39 Occupational exposure to other a ir contaminants Justin Shea DO 07/10/2021 I47.9 Paroxysmal tachycardia, unspecif ied Justin Shea DO 02/06/2021 G47.33 Obstructive sleep apnea (adult) (pediatric) CAMILLE Weaver Plan of Treatment Future Appointment(s):* 08/13/2021 10:30 am - Justin Shea DO at [facility] * 02/10/2022 11:00 am - CAMILLE Weaver at [facility] 07/10/2021 - Justin Shea DO* J45.51 Severe persistent asthma with (acute) exacerbation * Z57.39 Occupational exposure to other air contaminants * I47.9 Paroxysmal tachycardia, unspecified * * New Medication:* Prednisone 10 mg * Comments:* 07/10/21 OFFICE VISIT (page 2 of 2)~ Having reviewed the history, physical, and diagnostic findings with the patient, I am concerned with this turn in her symptoms to worse. We will obtain a chest x-ray in light of what sounds like an aspiration event six weeks ago, to determine if there is structural change in the lungs. We will also obtain a CBC with differential and an IgE and RAST study, given her significant symptom presentation. From a therapeutic standpoint, we will begin prednisone, as she has responded to this in the past. I am concerned about her heart rate, however, it did come down into the twenties over the course of the interview, and she had no symptoms of palpitations. She does have a follow-up with Cardiology in the near future. We will make note of this for then. Her extremity edema raises questions of secondary problem of heart failure perhaps. Will defer to Cardiology in this regard. We will speak with her by phone after the results of her CBC with differential and chest x-ray, and determine her response to steroids. A routine follow-up visit will be scheduled in one month. * Follow up:* CBC with diff, RAST, IgE Chest x-ray Call with results and for an update. Prednisone taper Follow up in a month with spirometry/FVL. Functional Status Description No Information Available Mental Status Description No Information Available Referrals Description No Information Available
--- OUTSIDE RECORDS SUMMARY | 2021-07-22 10:48 | CCD ---
Author Author [facility] Organization [facility] Address Unknown Phone Unavailable Care Team Providers Care Arts And Crafts Instructor Name Role Phone Micheal, L Irene ATOMIC PHYSICS TEACHER Unavailable Unavailable Micheal, L Irene ATOMIC PHYSICS TEACHER Unavailable Unavailable Micheal, L Irene ATOMIC PHYSICS TEACHER Unavailable Unavailable Micheal, L Irene ATOMIC PHYSICS TEACHER Unavailable Unavailable Micheal, L Irene ATOMIC PHYSICS TEACHER Unavailable Unavailable Micheal, L Irene ATOMIC PHYSICS TEACHER Unavailable Unavailable Micheal, L Irene ATOMIC PHYSICS TEACHER Unavailable Unavailable Micheal, L Irene ATOMIC PHYSICS TEACHER Unavailable Unavailable Micheal, L Irene ATOMIC PHYSICS TEACHER Unavailable Unavailable Micheal, L Irene ATOMIC PHYSICS TEACHER Unavailable Unavailable Micheal, L Irene ATOMIC PHYSICS TEACHER Unavailable Unavailable Micheal, L Irene ATOMIC PHYSICS TEACHER Unavailable Unavailable Micheal, L Irene ATOMIC PHYSICS TEACHER Unavailable Unavailable Micheal, L Irene ATOMIC PHYSICS TEACHER Unavailable Unavailable Micheal, L Irene ATOMIC PHYSICS TEACHER Unavailable Unavailable Micheal, L Irene ATOMIC PHYSICS TEACHER Unavailable Unavailable Micheal, L Irene ATOMIC PHYSICS TEACHER Unavailable Unavailable Micheal, L Irene ATOMIC PHYSICS TEACHER Unavailable Unavailable Micheal, L Irene ATOMIC PHYSICS TEACHER Unavailable Unavailable Micheal, L Irene ATOMIC PHYSICS TEACHER Unavailable Unavailable Micheal, L Irene ATOMIC PHYSICS TEACHER Unavailable Unavailable Micheal, L Irene ATOMIC PHYSICS TEACHER Unavailable Unavailable Micheal, L Irene ATOMIC PHYSICS TEACHER Unavailable Unavailable Micheal, L Irene ATOMIC PHYSICS TEACHER Unavailable Unavailable Milagro Romeo Unavailable Unavailable Milagro Romeo Unavailable Unavailable Symenow, Milagro Chetna PA Unavailable Unavailable Symenow, Milagro Chetna PA Unavailable Unavailable Symenow, Milagro Chetna PA Unavailable Unavailable Symenow, Milagro Chetna PA Unavailable Unavailable Symenow, Milagro Chetna PA Unavailable Unavailable Symenow, Milagro Chetna PA Unavailable Unavailable Symenow, Milagro Chetna PA Unavailable Unavailable Symenow, Milagro Chetna PA Unavailable Unavailable Symenow, Milagro Chetna PA Unavailable Unavailable Symenow, Milagro Chetna PA Unavailable Unavailable Symenow, Milagro Chetna PA Unavailable Unavailable Symenow, Milagro Chetna PA Unavailable Unavailable Symenow, Milagro Chetna PA Unavailable Unavailable Symenow, Milagro Chetna PA Unavailable Unavailable Symenow, Milagro Chetna PA Unavailable Unavailable Symenow, Milagro Chetna PA Unavailable Unavailable Symenow, Milagro Chetna PA Unavailable Unavailable Symenow, Milagro Chetna PA Unavailable Unavailable Symenow, Milagro Chetna PA Unavailable Unavailable Symenow, Milagro Chetna PA Unavailable Unavailable Symenow, Milagro Chetna PA Unavailable Unavailable Symenow, Milagro Chetna PA Unavailable Unavailable Symenow, Milagro Chetna PA Unavailable Unavailable Symenow, Milagro Chetna PA Unavailable Unavailable Symenow, Milagro Chetna PA Unavailable Unavailable Symenow, Milagro Chetna PA Unavailable Unavailable Symenow, Milagro Chetna PA Unavailable Unavailable Symenow, Milagro Chetna PA Unavailable Unavailable Symenow, Milagro Chetna PA Unavailable Unavailable Symenow, Milagro Chetna PA Unavailable Unavailable Symenow, Milagro Chetna PA Unavailable Unavailable Symenow, Milagro Chetna PA Unavailable Unavailable MCELHERJEANIE ALVAREZ PA Unavailable Unavailable MCELHERJEANIE ALVAREZ PA Unavailable Unavailable MCELHERJEANIE ALVAREZ PA Unavailable Unavailable MCELJEANIE MITTAL PA Unavailable Unavailable MCELJEANIE MITTAL PA Unavailable Unavailable MCELHERJEANIE ALVAREZ PA Unavailable Unavailable MCELHERJEANIE ALVAREZ PA Unavailable Unavailable MCELJEANIE MITTAL PA Unavailable Unavailable MCELJEANIE MITTAL PA Unavailable Unavailable MCELJEANIE MITTAL PA Unavailable Unavailable MCELHERAN, JEANIE PA Unavailable Unavailable MCELHERAN, JEANIE PA Unavailable Unavailable MCELHERAN, JEANIE PA Unavailable Unavailable MCELHERAN, JEANIE PA Unavailable Unavailable MCELHERAN, JEANIE PA Unavailable Unavailable MCELHERAN, JEANIE PA Unavailable Unavailable MCELHERAN, JEANIE PA Unavailable Unavailable MCELHERAN, JEANIE PA Unavailable Unavailable MCELHERAN, JEANIE PA Unavailable Unavailable MCELHERAN, JEANIE PA Unavailable Unavailable MCELHERAN, JEANIE PA Unavailable Unavailable MCELHERAN, JEANIE PA Unavailable Unavailable MCELHERAN, JEANIE PA Unavailable Unavailable MCELHERAN, JEANIE PA Unavailable Unavailable MCELHERAN, JEANIE PA Unavailable Unavailable MCELHERAN, JEANIE PA Unavailable Unavailable MCELHERAN, JEANIE PA Unavailable Unavailable MCELHERAN, JEANIE PA Unavailable Unavailable MCELHERAN, JEANIE PA Unavailable Unavailable Rechlin, P Justin DO Unavailable Unavailable Rechlin, P Justin DO Unavailable Unavailable Rechlin, P Justin DO Unavailable Unavailable Rechlin, P Justin DO Unavailable Unavailable Rechlin, P Justin DO Unavailable Unavailable Rechlin, P Justin DO Unavailable Unavailable Rechlin, P Justin DO Unavailable Unavailable Rechlin, P Justin DO Unavailable Unavailable Rechlin, P Justin DO Unavailable Unavailable Rechlin, P Justin DO Unavailable Unavailable Rechlin, P Justin DO Unavailable Unavailable Rechlin, P Justin DO Unavailable Unavailable Rechlin, P Justin DO Unavailable Unavailable Rechlin, P Justin DO Unavailable Unavailable Rechlin, P Justin DO Unavailable Unavailable Rechlin, P Justin DO Unavailable Unavailable Rechlin, P Justin DO Unavailable Unavailable Rechlin, P Justin DO Unavailable Unavailable Rechlin, P Justin DO Unavailable Unavailable Rechlin, P Justin DO Unavailable Unavailable Rechlin, P Justin DO Unavailable Unavailable Rechlin, P Justin DO Unavailable Unavailable Rechlin, P Justin DO Unavailable Unavailable Rechlin, P Justin DO Unavailable Unavailable Rechlin, P Justin DO Unavailable Unavailable Rechlin, P Justin DO Unavailable Unavailable Rechlin, P Justin DO Unavailable Unavailable Rechlin, P Justin DO Unavailable Unavailable Rechlin, P Justin DO Unavailable Unavailable Rechlin, P Justin DO Unavailable Unavailable Rechlin, P Justin DO Unavailable Unavailable Rechlin, P Justin DO Unavailable Unavailable Rechlin, P Justin DO Unavailable Unavailable Rechlin, P Justin DO Unavailable Unavailable Rechlin, P Justin DO Unavailable Unavailable Rechlin, P Justin DO Unavailable Unavailable Rechlin, P Justin DO Unavailable Unavailable Rechlin, P Justin DO Unavailable Unavailable Rechlin, P Justin DO Unavailable Unavailable Rechlin, P Justin DO Unavailable Unavailable Rechlin, P Justin DO Unavailable Unavailable Rechlin, P Justin DO Unavailable Unavailable Rechlin, Jerry Anderson DO Unavailable Unavailable Rechlin, P Justin DO Unavailable Unavailable Rechlin, Jerry Anderson DO Unavailable Unavailable Rechlin, Jerry Anderson DO Unavailable Unavailable Rechlin, Jerry Anderson DO Unavailable Unavailable Rechlin, P Justin DO Unavailable Unavailable Rechlin, P Justin DO Unavailable Unavailable Rechlin, P Justin DO Unavailable Unavailable Rechlin, P Justin DO Unavailable Unavailable Alisson, D Jeanie PA Unavailable Unavailable Alisson, D Jeanie PA Unavailable Unavailable Alisson, D Jeanie PA Unavailable Unavailable Alisson, D Jeanie PA Unavailable Unavailable Alisson, D Jeanie PA Unavailable Unavailable Alisson, D Jeanie PA Unavailable Unavailable Alisson, D Jeanie PA Unavailable Unavailable Alisson, D Jeanie PA Unavailable Unavailable Alisson, D Jeanie PA Unavailable Unavailable Alisson, D Jeanie PA Unavailable Unavailable Alisson, D Jeanie PA Unavailable Unavailable Alisson, D Jeanie PA Unavailable Unavailable Alisson, D Jeanie PA Unavailable Unavailable Alisson, D Jeanie PA Unavailable Unavailable Alisson, D Jeanie PA Unavailable Unavailable Alisson, D Jeanie PA Unavailable Unavailable Alisson, D Jeanie PA Unavailable Unavailable Alisson, D Jeanie PA Unavailable Unavailable Alisson, D Jeanie PA Unavailable Unavailable Alisson, D Jeanie PA Unavailable Unavailable Alisson, D Jeanie PA Unavailable Unavailable Alisson, D Jeanie PA Unavailable Unavailable Alisson, D Jeanie PA Unavailable Unavailable Alisson, D Jeanie PA Unavailable Unavailable Alisson, D Jeanie PA Unavailable Unavailable Alisson, D Jeanie PA Unavailable Unavailable Alisson, D Jeanie PA Unavailable Unavailable Alisson, D Jeanie PA Unavailable Unavailable Alisson, D Jeanie PA Unavailable Unavailable Alisson, D Jeanie PA Unavailable Unavailable Alisson, D Jeanie PA Unavailable Unavailable Alisson, D Jeanie PA Unavailable Unavailable Alisson, D Jeanie PA Unavailable Unavailable Alisson, D Jeanie PA Unavailable Unavailable Alisson, D Jeanie PA Unavailable Unavailable Alisson, D Jeanie PA Unavailable Unavailable Alisson, D Jeanie PA Unavailable Unavailable Alisson, D Jeanie PA Unavailable Unavailable Alisson, D Jeanie PA Unavailable Unavailable Alisson, D Jeanie PA Unavailable Unavailable Alisson, D Jeanie PA Unavailable Unavailable Alisson, D Jeanie PA Unavailable Unavailable Alisson, D Jeanie PA Unavailable Unavailable Alisson, D Jeanie PA Unavailable Unavailable Alisson, D Jeanie PA Unavailable Unavailable Alisson, D Jeanie PA Unavailable Unavailable Alisson, D Jeanie PA Unavailable Unavailable Alisson, D Jeanie PA Unavailable Unavailable Alisson, D Jeanie PA Unavailable Unavailable Alisson, D Jeanie PA Unavailable Unavailable Alisson, D Jeanie PA Unavailable Unavailable Alisson, D Jeanie PA Unavailable Unavailable Alisson, D Jeanie PA Unavailable Unavailable Alissno, D Jeanie PA Unavailable Unavailable Alisson, D Jeanie PA Unavailable Unavailable Alisson, D Jeanie PA Unavailable Unavailable Alisson, D Jeanie PA Unavailable Unavailable Alisson, D Jeanie PA Unavailable Unavailable Alisson, D Jeanie PA Unavailable Unavailable Alisson, D Jeanie PA Unavailable Unavailable Alisson, D Jeanie PA Unavailable Unavailable Alisson, D Jeanie PA Unavailable Unavailable Alisson, D Jeanie PA Unavailable Unavailable Alisson, D Jeanie PA Unavailable Unavailable Alisson, D Jeanie PA Unavailable Unavailable Alisson, D Jeanie PA Unavailable Unavailable DRAZEK, I DEVON PA Unavailable Unavailable DRAZEK, I DEVON PA Unavailable Unavailable DRAZEK, I DEVON PA Unavailable Unavailable DRAZEK, I DEVON PA Unavailable Unavailable DRAZEK, I DEVON PA Unavailable Unavailable DRAZEK, I DEVON PA Unavailable Unavailable DRAZEK, I DEVON PA Unavailable Unavailable DRAZEK, I DEVON PA Unavailable Unavailable DRAZEK, I DEVON PA Unavailable Unavailable DRAZEK, I DEVON PA Unavailable Unavailable DRAZEK, I DEVON PA Unavailable Unavailable DRAZEK, I DEVON PA Unavailable Unavailable DRAZEK, I DEVON PA Unavailable Unavailable DRAZEK, I DEVON PA Unavailable Unavailable DRAZEK, I DEVON PA Unavailable Unavailable DRAZEK, I DEVON PA Unavailable Unavailable DRAZEK, I DEVON PA Unavailable Unavailable DRAZEK, I DEVON PA Unavailable Unavailable DRAZEK, I DEVON PA Unavailable Unavailable DRAZEK, I DEVON PA Unavailable Unavailable DRAZEK, I DEVON PA Unavailable Unavailable DRAZEK, I DEVON PA Unavailable Unavailable DRAZEK, I DEVON PA Unavailable Unavailable DRAZEK, I DEVON PA Unavailable Unavailable DRAZEK, I DEVON PA Unavailable Unavailable DRAZEK, I DEVON PA Unavailable Unavailable DRAZEK, I DEVON PA Unavailable Unavailable DRAZEK, I DEVON PA Unavailable Unavailable DRAZEK, I DEVON PA Unavailable Unavailable DRAZEK, I DEVON PA Unavailable Unavailable Re-disclosure Warning The records that you are about to access may contain information from federally-assisted alcohol or drug abuse programs. If such information is present, then the following federally mandated warning applies: This information has been disclosed to you from records protected by federal confidentiality rules (42 CFR part 2). The federal rules prohibit you from making any further disclosure of this information unless further disclosure is expressly permitted by the written consent of the person to whom it pertains or as otherwise permitted by 42 CFR part 2. A general authorization for the release of medical or other information is NOT sufficient for this purpose. The Federal rules restrict any use of the information to criminally investigate or prosecute any alcohol or drug abuse patient.The records that you are about to access may contain highly sensitive health information, the redisclosure of which is protected by Article 27-F of the [facility] Public Health law. If you continue you may have access to information: Regarding HIV / AIDS; Provided by facilities licensed or operated by the [facility] Office of Mental Health; or Provided by the [facility] Office for People With Developmental Disabilities. If such information is present, then the following [facility] mandated warning applies: This information has been disclosed to you from confidential records which are protected by state law. State law prohibits you from making any further disclosure of this information without the specific written consent of the person to whom it pertains, or as otherwise permitted by law. Any unauthorized further disclosure in violation of state law may result in a fine or usp sentence or both. A general authorization for the release of medical or other information is NOT sufficient authorization for further disc losure. Family History Family Member Name Family Member Gender Family Member Status Date o f Status Description Data Source(s) Unknown Male Problem [facility] ([facility] Unknown Unknown Problem [facility] ([facility] Unknown Female Problem [facility] ([facility]) Unknown Female Problem [facility] ([facility]) Encounters Encounter Providers Location Date Indications Data Source(s ) Outpatient Attender: Justin Reed/Tay/Leobardo/Sean ndalthea 07/10/2021 09:00:00 AM EDT [facility] ([facility] Outpatient Attender: Chetna KOLB Main Office 05/02/2021 09:30:00 AM EDT [facility] ([facility]) Outpatient Attender: Jeanie KOLB [place] Office 01:45:00 PM EDT [facility] ([facility] Outpatient Attender: Irene Martinez/Tay/Leobardo/Caio 02/06/2021 09:30:00 AM EST [facility] ([facility] Office Visit Attender: JEANIE KOLB Physical Therapy 11/04/2020 01:30:00 PM EST [facility] ([facility]) Office Visit Attender: DEVON KOLB Physical Therapy 2019 12:30:00 PM EST [facility] ([facility]) Office Visit Attender: JEANIE KOLB Physical Therapy 10/11/2020 12:45:00 PM EST [facility] ([facility]) Outpatient Attender: JEANIE KOLB Physical Therapy 09/27/2020 01:30:00 PM EDT [facility] ([facility]) Outpatient Attender: Chetna KOLB Main Office 09/16/2020 12:30:00 PM EDT [facility] ([facility]) Immunizations Vaccine Date Status Description Data Source(s) COVID-19 VACCINE Moderna 02/25/2021 12:00:00 AM EDT completed [facility] Vaccine Series Complete: YESThis Data wa s Submitted to [facility] Via [facility]. COVID-19 VACCINE Moderna 01/28/2021 12:00:00 AM EST completed [facility] Vaccine Series Complete: NOThis Data was Submitted to [facility] Via [employer]. Medications Medication Brand Name Start Date Product Form Dose Route Admi nistrative Instructions Pharmacy Instructions Status Indications Reaction Description Data Source(s) Prednisone 10 MG Oral Tablet Prednisone 07/10/2021 12:00:00 AM EDT ORAL active MED[facility] ([facility]) 10 mg 07/10/2021 12:00:00 AM EDT tablet 20 TAKE 2 TABLETS BY MOUTH DAILY FOR 5 DAYS, 1 TAB. DAILY FOR 5 DAYS, THEN 1/2 TAB. DAILY FOR 5 DAYS THEN STOP TAKE 2 TABLETS BY MOUTH DAILY FOR 5 DAYS, 1 TAB. DAILY FOR 5 DAYS, THEN 1/2 TAB. DAILY FOR 5 DAYS THEN STOP SOLD: 07/10/2021 [facility] 4 mg 02/12/2021 12:00:00 AM EDT tablets,dose pack 21 TAKE DIRECTED TAKE DIRECTED SOLD: 02/12/2021 [facility] Medrol Medrol 02/12/2021 12:00:00 AM EDT completed [facility] ([facility] 150 mg 02/12/2021 12:00:00 AM EDT tablet 2 TAKE 1 TABLET BY MOUTH NOW, TAKE 2ND TABLET 1 WEEK AFTER 1ST DOSE TAKE 1 TABLET BY MOUTH NOW, TAKE 2ND TAB LET 1 WEEK AFTER 1ST DOSE SOLD: 02/12/2021 [facility] cefdinir 300 MG Oral Capsule Cefdinir 02/12/2021 12:00:00 AM EDT ORAL active MED[facility] ([facility] 300 mg 02/12/2021 12:00:00 AM EDT capsule 20 TAKE ONE CAPSULE BY MOUTH TWICE A DAY FOR 10 DAYS TAKE ONE CAPSULE BY MOUTH TWICE A DAY FOR 10 DAYS SOLD : 02/12/2021 [facility] Fluconazole 150 MG Oral Tablet [Diflucan] Diflucan 02/12/2021 1 2:00:00 AM EDT ORAL active [facility] ([facility] 120 ACTUAT Fluticasone propionate 0.23 M G/ACTUAT / salmeterol 0.021 MG/ACTUAT Metered Dose Inhaler [Advair] Advair HFA 01/08/2021 12:00:00 AM EST RESPIRATORY active MED[facility] ( [facility], ) 5 mg 11/12/2020 12:00:00 AM EST tablet 74 TAKE TWO TABLETS BY MOUTH TWICE A DAY FOR 7 DAYS THEN TAKE ONE TABLET BY MOUTH TWICE A DAY TAKE TWO TABLETS BY MOUTH TWICE A DAY FOR 7 DAYS THEN TAKE ONE TABLET BY MOUTH TWICE A DAY SOLD: 11/13/2020 [facility] Cephalexin 500 MG Oral Capsule CEPHALEXIN 11/12/2020 12:00:00 AM EST capsule 20 TAKE ONE CAPSULE BY MOUTH EVERY 12 HOURS TAKE ONE CAPS ULE BY MOUTH EVERY 12 HOURS SOLD: 11/13/2020 [facility] Albuterol 0.83 MG/ML Inhalant Solution Albuterol Sulfate 1 12:00:00 AM EDT active [facility] Fluticasone Propionate Fluticasone Propionate 09/15/2020 12:00:00 AM E DT active [facility] ([facility]) 12 HR Dextromethorphan Hydrobromide 30 M G / Guaifenesin 600 MG Extended Release Oral Tablet Mucinex DM 09/15/2020 12:00:00 AM EDT ORAL active [facility] ([facility]) Wixela Inhub Wixela Inhub 09/15/2020 12:00:00 AM EDT RESPIR ATORY active [facility] Spiriva Respimat Spiriva Respimat 09/15/2020 12:00:00 AM EDT active [facility] ([facility] Insurance Providers Payer name Policy type / Coverage type Policy ID Covered alliance party ID Covered alliance party's relationship to linares Policy Linares Plan Information [facility] Part B [id number] Self [id number] [facility] Part B [id number] Self [employer] Commercial [id number] Self [id number] MVP Commercial [id number] Self [employer] [id number] Self [employer] Compensation [id number] Self Y [id number] [employer] Indemn[employer] Commercial [id number] Self [id number] MVP (pr) Commercial [id number] Self [facility] [id number] SP [id number] [employer] Workers Compensation [id number] Self [id number] ERIC [facility] O [id number] S [id number] Eric [facility] Health Maintenance Organization (HMO) [id number] Self [id number] [facility] Part B [id number] Self [id number] [facility] [id number] SP [id number] [facility] O [id number] S [id number] [facility] Health Care Commercial [id number] Self [facility] [id number] SP [id number] [facility] Part B [id number] Self BOND WORK COMP [id number] SP Y [id number] ITT BOND WORK COMP [id number] SP [id number] [facility] OPERATION BRISSA [id number] SP [id number] 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 [id number] SP [id number] 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 [id number] SP [id number] ERIC [id number] SP [id number] ER[place] CARE [place] O [id number] S [id number] 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 [id number] SP [id number] 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 [id number] SP [id number] [place] O [id number] S [id number] [facility] Part B [id number] Self [id number] Eric Health Maintenance Organization ([facility]) [id number] Self [id number] 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 [id number] SP [id number] ANDI PRINGINT [id number] SP [id number] ANDI PRINGINT [id number] SP [id number] Problems, Conditions, and Diagnoses Code Display Name Description Problem Type Effective Dates Data Source(s) J45.51 Exacerbation of severe persistent asthma Exacerbation of severe persistent asthma Problem 07/10/2021 12:00:00 AM JAYNE KRAUSE ([facility], ) I47.9 Paroxysmal tachycardia Paroxysmal tachycardia Problem 07/10/2021 12:00:00 AM EDT MED[facility] ([facility]) G47.33 Obstructive sleep apnea syndrome Obstructive sle ep apnea syndrome Problem 09/16/2020 12:00:00 AM EDT [facility] ([facility]) I77.810 Ascending aorta dilatation Ascending aorta dilatation Problem 09/16/2020 12:00:00 AM EDT [facility] (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) Spirometry 01/03/2021 12:00:00 AM EST M EDENT ([facility]) Plethysmography Determination Lung Volumes & Per Airway Resi st 01/03/2021 12:00:00 AM EST [facility] DIFFUSING CAPACITY 01/03/2021 12:00:00 AM EST [facility] ([facility]) RADEX ANKLE COMPLETE MINIMUM 3 VIEWS 12/02/2020 12:00: 00 AM EST [facility] ([facility] RADEX ANKLE COMPLETE MINIMUM 3 VIEWS 11/04/2020 12:00: 00 AM EST [facility] ([facility]) APPLICATION SHORT LEG CAST BELOW KNEE-TOE 10/22/2020 1 2:00:00 AM EST [facility] ([facility] Apply Cast Short Leg Walking 10/11/2020 12:00:00 AM ES T [facility] ([facility]) RADEX ANKLE COMPLETE MINIMUM 3 VIEWS 10/11/2020 12:00: 00 AM EST [facility] ([facility] ) FX Lateral Malleolus (Distal Fibula) W/Manipulation 09/27/2020 12:00:00 AM EDT [facility] ([facility] RADIOLOGIC EXAMINATION TIBIA & FIBULA 2 VIEWS 09/27/20 12:00:00 AM [facility] X-Ray Ankle Ap & Lateral 2 Views 09/27/2020 12:00:00 A M EDT [facility] RADEX ANKLE COMPLETE MINIMUM 3 VIEWS 09/27/2020 12:00: 00 AM EDT [facility] ECG ROUTINE ECG W/LEAST 12 LDS W/I&R 09/16/2020 12:00: 00 AM EDT [facility] INTERROGATION EVAL IN PERSON 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 PM 2019 12:00:00 AM EDT [facility] ([facility]) Results ID Date Data Source [id number] 07/10/2021 09:17:00 AM EDT [facility] ([facility], ) Name Value Range Interpretation Code Description Data Cheyanne rce(s) Supporting Document(s) [id number] D pteronyssinus 1.29 kU/L Abnormal (applie s to non-numeric results) [facility] ([facility], ) Class Description Laboratory test result Normal (applies to non-numeric results) [facility] ([facility], ) <content>.</content>
<content>Levels of Specific IgE Class Description of Class</content>
<content> ----- </content>
<content>< 0.10 0 Negative</content>
<content>0.10 - 0.31 0/I Equivocal/Low</content>
<content>0.32 - 0.55 I Low</content>
<content>0.56 - 1.40 II Moderate</content>
<content>1.41 - 3.90 III High</content>
<content>3.91 - 19.00 IV Very High</content>
<content>19.01 - 100.00 V Very High</content>
<content>>100.00 Very High</content>
<content></content> S349-StM D farinae Mite 1.15 kU/L Abnormal (applies to no n-numeric results) [facility] ([facility], ) S443-LnH Cat Epith/Dander Laboratory test result Normal (applies to non- numeric results) [facility] ([facility], ) U141-MfC Dog Dander 0.11 kU/L Abnormal (applies to non-nu meric results) [facility] ([facility], ) F426-QjC [place] Grass Laboratory test result No rmal (applies to non-numeric results) [facility] ([facility]) O471-KmN Bahia Grass Laboratory test result Norm al (applies to non-numeric results) [facility] ([facility], ) J542-LkU [place] Laboratory test result Normal (applies to non- numeric results) [facility] ([facility], ) O353-UsJ Cockroach, Nicar[place]uan Laboratory test result Normal (applies to non- numeric results) [facility] ([facility], ) B547-RuT Penicillium chrysogen Laboratory test result Normal (applies to non- numeric results) [facility] M002 IgE Cladosporium herbaru Laboratory test result Normal (applies to non- numeric results) [facility] ([facility], ) M003 IgE Aspergillus fumigatu Laboratory test result Normal (applies to non- numeric results) [facility] ([facility], ) F164-WnS Mucor racemosus Laboratory test result Normal (applies to non-numeric results) [facility] ([facility]) O179-ZdI Stemphylium Herbarum Laboratory test result Normal (applies to non- numeric results) [facility] ([facility]) N516-XbA Alternaria alternata Laboratory test result Normal (applies to non- numeric results) [facility] ([facility], ) A768-GmQ Common Silver Birch Laboratory test result Normal (applies to non- numeric results) [facility] ([facility], ) Z819-EtE Thornton, White Laboratory test result Marina l (applies to non-numeric results) [facility] ([facility], ) Q676-KxU Elm, [place]uan Laboratory test result No rmal (applies to non-numeric results) [facility] ([facility], ) K435-MaJ Maple/[place]aton Laboratory test result Normal (applies to non-numeric results) [facility] ([facility], ) P103-IrF Madhu, White Laboratory test result Marina l (applies to non-numeric results) [facility] ([facility], ) P393-AbO Hazelnut Tree Laboratory test result No rmal (applies to non-numeric results) [facility] ([facility]) G910-IsM White [place] Laboratory test result N ormal (applies to non-numeric results) [facility] ([facility], ) Z160-JmL Kerr, White Laboratory test result N ormal (applies to non-numeric results) [facility] ([facility], ) D851-IcS Ragweed, Short Laboratory test result N ormal (applies to non-numeric results) [facility] ([facility]) C769-CvY [place], Mountain Laboratory test result Normal (applies to non-numeric results) [facility] ([facility]) G255-UzN Mugwort Laboratory test result Normal ( applies to non-numeric results) [facility] ([facility]) Z972-EnA Plantain, American Laboratory test result Normal (applies to non- numeric results) [facility] ([facility], ) C111-YwN Pigweed, Rough Laboratory test result N ormal (applies to non-numeric results) [facility] ([facility]) T328-CtH Sheep [place] Laboratory test result Nor mal (applies to non-numeric results) [facility] ([facility]) K103-YuL Nettle Laboratory test result Normal (a pplies to non-numeric results) [facility] ([facility], ) Performed at: [address] [id number] Administrative Specialist: Vicente Brandt MD, Phone: [phone] ID Date Data Source [id number] 07/10/2021 09:17:00 AM EDT [facility] ([facility]) Name Value Range Interpretation Code Description Data Cheyanne rce(s) Supporting Document(s) IgE [Mass/volume] in Serum 28.9 IU/ml Normal (applie s to non-numeric results) [facility]) ID Date Data Source [id number] [facility] Name Value Range Interpretation Code Description Data Cheyanne rce(s) Supporting Document(s) White Blood Count 4.4 10 4.0-10.0 Normal (applies to non-numeri c results) [facility]) Hematocrit 40.6 % 36.0-47.0 Normal (applies to non-numeric resul ts) [facility]) Hemoglobin 12.8 g/dL 12.0-15.5 Normal (applies to non-numeric resul ts) [facility]) Red Blood Count 4.45 10 4.00-5.40 Normal (applies to non-numeric results) [facility]) Mean Corpuscular Hemoglobin 28.8 pg 27.0-33.0 Norm al (applies to non-numeric results) [facility]) Mean Corpuscular Volume 91.2 fl 80.0-96.0 Normal ( applies to non-numeric results) [facility]) Mean Corpuscular HGB Conc 31.5 g/dL 32.0-36.5 Below low normal [facility]) Red Cell Distribution Width 14.8 % 11.5-14.5 Above high normal [facility] ([facility]) Platelet Count, Automated Laboratory test result 150-450 Normal (applies to non- numeric results) [facility]) Platelet count invalid due to platelet c lumping. Suggest ordering platelet blue test to confirm clumping is not due to EDTA. Neutrophils % 67.8 % 36.0-66.0 Above high normal [facility] ([facility]) Lymph % 21.1 % 24.0-44.0 Below low normal [facility] ( [facility]) Baso % 0.9 % 0.0-1.0 Normal (applies to non-numeric resul ts) [facility] ([facility]) [place] % 8.6 % 2.0-8.0 Above high normal [facility] ([facility]) Eos % 1.4 % 0.0-3.0 Normal (applies to non-numeric resul ts) [facility] ([facility]) Nucleated Red Blood Cell % 0.0 % 0-0 Normal (applies to n on-numeric results) [facility] ([facility]) Immature Granulocyte % 0.2 % 0-3.0 Normal (applies to non-n umeric results) [facility] ([facility]) Lymph # 0.9 10 1.5-5.0 Below low normal [facility] ( [facility]) Neutrophils # 3.0 10 1.5-8.5 Normal (applies to non-numeric re sults) [facility] ([facility]) Baso # 0.0 10 0.0-0.2 Normal (applies to non-numeric resul ts) [facility] ([facility]) [place] # 0.4 10 0.0-0.8 Normal (applies to non-numeric resul ts) [facility] ([facility]) Eos # 0.1 10 0.0-0.5 Normal (applies to non-numeric resul ts) [facility] ([facility]) ID Date Data Source [id number] 02/12/2021 01:39:00 PM EDT [facility] ([facility] Name Value Range Interpretation Code Description Data Cheyanne rce(s) Supporting Document(s) Thyrotropin [Units/volume] in Serum or Plasma 0.799 uIU/mL 0.450-4.50 0 [facility] ([facility] ID Date Data Source [id number] 02/12/2021 01:39:00 PM EDT [facility] ([facility] Name Value Range Interpretation Code Description Data Cheyanne rce(s) Supporting Document(s) BUN 10 mg/dL 8-27 [facility] ([facility] Glucose [Mass/volume] in Serum or Plasma 79 mg/dL 65-99 [facility] ([facility] Creatinine [Mass/volume] in Serum or Plasma 0.55 mg/dL 0.57 -1.00 Below low normal [facility] ([facility] ) eGFR If NonAfricn Am 102 mL/min/1.73 [facility] ([facility] eGFR If Africn Am 118 mL/min/1.73 [facility] ([facility] Urea nitrogen/Creatinine [Mass Ratio] in Serum or Plasma 18 1 2-28 [facility] ([facility] Sodium [Moles/volume] in Serum or Plasma 141 mmol/L 134-144 [facility] ([facility] Potassium [Moles/volume] in Serum or Plasma 5.0 mmol/L 3.5-5.2 [facility] ([facility] Calcium [Mass/volume] in Serum or Plasma 9.1 mg/dL 8.7-10.3 [facility] ([facility] Carbon dioxide, total [Moles/volume] in Serum or Plasma 24 mmol/L 20 -29 [facility] ([facility] Chloride [Moles/volume] in Serum or Plasma 105 mmol/L 96-106 [facility] ([facility] Globulin [Mass/volume] in Serum by calculation 2.2 g/dL 1.5-4.5 [facility] ([facility] Protein [Mass/volume] in Serum or Plasma 6.0 g/dL 6.0-8.5 [facility] ([facility] Albumin [Mass/volume] in Serum or Plasma 3.8 g/dL 3.8-4.9 [facility] ([facility] Albumin/Globulin [Mass Ratio] in Serum or Plasma 1.7 1.2-2.2 [facility] ([facility] Bilirubin.total [Mass/volume] in Serum or Plasma 0.4 mg/dL 0.0-1.2 [facility] ([facility] Aspartate aminotransferase [Enzymatic activity/volume] in Serum or Plasma 14 IU/L 0-40 [facility] ([facility] Alkaline phosphatase [Enzymatic activity/volume] in Serum or Plasma 83 IU/L 39-117 [facility] ([facility] Alanine aminotransferase [Enzymatic activity/volume] in Seru m or Plasma 14 IU/L 0-32 [facility] ([facility] ID Date Data Source [id number] 02/12/2021 01:39:00 PM EDT [facility] ([facility] Name Value Range Interpretation Code Description Data Cheyanne rce(s) Supporting Document(s) Leukocytes [#/volume] in Blood by Automated count 9.8 x10E3/uL 3.4-10 .8 [facility] ([facility] Hematocrit [Volume Fraction] of Blood by Automated count 38.2 % 3 4.0-46.6 [facility] ([facility] Hemoglobin [Mass/volume] in Blood 13.3 g/dL 11.1-15.9 [facility] ([facility] Erythrocytes [#/volume] in Blood by Automated count 4.49 x10E6/uL 3.7 7-5.28 [facility] ([facility] Erythrocyte mean corpuscular volume [Entitic volume] by Auto mated count 85 fL 79-97 [facility] ([facility] Erythrocyte mean corpuscular hemoglobin [Entitic mass] by Automated count 29.6 pg 26.6-33.0 [facility] ([facility] Erythrocyte mean corpuscular hemoglobin concentration [Mass/volume] by Automated count 34.8 g/dL 31.5-35.7 [facility] ([facility] Erythrocyte distribution width [Ratio] by Automated count 13.0 % 11.7-15.4 [facility] ([facility] Platelets [#/volume] in Blood by Automated count Laboratory test resu lt [facility] ([facility] Unable to perform an accurate platelet c ount due to aggregation of the platelets. Neutrophils 83 % [facility] Lymphs 9 % [facility] Eosinophils/100 leukocytes in Blood by Automated count 1 % [facility] ([facility] Basophils/100 leukocytes in Blood by Automated count 0 % [facility] Monocytes/100 leukocytes in Blood by Automated count 6 % [facility] ([facility] Immature cells [#/volume] in Blood Laboratory test result [facility] ([facility] Neutrophils [#/volume] in Blood by Automated count 8.2 x10E3/uL 1.4-7.0 Above high normal [facility] ([facility] ) Lymphocytes [#/volume] in Blood 0.9 x10E3/uL 0.7-3.1 [facility] ([facility] Eosinophils [#/volume] in Blood by Automated count 0.1 x10E3/uL 0.0-0 .4 [facility] ([facility] Basophils [#/volume] in Blood by Automated count 0.0 x10E3/uL 0.0-0.2 [facility] ([facility] Monocytes [#/volume] in Blood 0.6 x10E3/uL 0.1-0.9 [facility] ([facility] Immature granulocytes/100 leukocytes in Blood by Automated count 1 % [facility] ([facility] Immature granulocytes [#/volume] in Blood by Automated count 0.1 x10E3/uL 0.0-0.1 [facility] Nucleated erythrocytes/100 leukocytes [Ratio] in Blood by Automated count Laboratory test result [facility] ([facility] Morphology [Interpretation] in Blood Narrative Laboratory test result [facility] ([facility] Verified by microscopic examination. Procedure Social History Code Duration Value Status Description Data Source(s ) Smoking 07/10/2021 12:00:00 AM EDT Non Smoker completed Non Smoke r [facility] ([facility], ) Smoking 09/16/2020 12:00:00 AM EDT Patient is a former smoker completed Patient is a former smoker [facility] ([facility]) Vital Signs ID Date Data Source UNK Name Value Range Interpretation Code Description Data Source(s) Systolic blood pressure 148 mm[Hg] 148 mm[Hg] M [facility] ([facility], ) Diastolic blood pressure 100 mm[Hg] 100 mm[Hg] [facility] ([facility]) Heart rate 144 /min 144 /min [facility] ([facility]) Oxygen saturation in Arterial blood by Pulse oximetry 99 % 99 % [facility] ([facility]) Body height 66 [in_i] 66 [in_i] [facility] ([facility]) 5'6" [place] body weight 130 [lb_av] 130 [lb_av] [facility] ([facility], ) Systolic blood pressure 120 mm[Hg] 120 mm[Hg] M [facility] ([facility] Diastolic blood pressure 74 mm[Hg] 74 mm[Hg] [facility] ([facility] Body temperature 96.6 [degF] 96.6 [degF] [facility] ([facility] Heart rate 98 /min 98 /min [facility] ([facility] Respiratory rate 20 /min 20 /min [facility] ( [facility] Body height 66 [in_i] 66 [in_i] [facility] ([facility] 5'6" Body weight 367.00 [lb_av] 367.00 [lb_av] [facility] ([facility] [place] body weight 130 [lb_av] 130 [lb_av] [facility] ([facility] Body mass index (BMI) [Ratio] 59.2 kg/m2 59.2 k g/m2 [facility] ([facility] Oxygen saturation in Arterial blood by Pulse oximetry 98 % 98 % [facility] ([facility] Systolic blood pressure 132 mm[Hg] 132 mm[Hg] M [facility] ([facility], ) Diastolic blood pressure 80 mm[Hg] 80 mm[Hg] [facility] ([facility]) Heart rate 87 /min 87 /min [facility] ([facility]) Oxygen saturation in Arterial blood by Pulse oximetry 94 % 94 % [facility] ([facility]) Body height 66 [in_i] 66 [in_i] [facility] Body weight 360.00 [lb_av] 360.00 [lb_av] [facility] ([facility]) Body mass index (BMI) [Ratio] 58.1 kg/m2 58.1 k g/m2 [facility] ([facility]) [place] body weight 130 [lb_av] 130 [lb_av] [facility] ([facility]) Body weight 163.296 kg 163.296 kg [facility] ([facility]) Body surface area Derived from formula 2.57 m2 2.57 m2 [facility] ([facility]) Body temperature 96.2 [degF] 96.2 [degF] [facility] Body temperature 96.8 [degF] 96.8 [degF] [facility]) Body temperature 97.6 [degF] 97.6 [degF] [facility]) Body height 66 [in_i] 66 [in_i] [facility] ([facility]) 5'6" Body weight 350.38 [lb_av] 350.38 [lb_av] [facility] ([facility]) Body mass index (BMI) [Ratio] 56.5 kg/m2 56.5 k g/m2 [facility] ([facility]) Body weight 344.00 [lb_av] 344.00 [lb_av] [facility]) Body height 66 [in_i] 66 [in_i] [facility] 5'6" Body mass index (BMI) [Ratio] 55.5 kg/m2 55.5 k g/m2 [facility] ([facility]) Heart rate 76 /min 76 /min [facility] Regular Respiratory rate 16 /min 16 /min [facility] ( [facility]) Systolic blood pressure 130 mm[Hg] 130 mm[Hg] M [facility] ([facility]) sitting, large cuff Diastolic blood pressure 74 mm[Hg] 74 mm[Hg] [facility] ([facility]) sitting, large cuff Systolic blood pressure 126 mm[Hg] 126 mm[Hg] M [facility] ([facility]) sitting Diastolic blood pressure 74 mm[Hg] 74 mm[Hg] [facility] ([facility]) sitting Systolic blood pressure 130 mm[Hg] 130 mm[Hg] [facility] ([facility]) Diastolic blood pressure 70 mm[Hg] 70 mm[Hg] [facility] ([facility]) Heart rate 80 /min 80 /min [facility] ([facility]) Oxygen saturation in Arterial blood by Pulse oximetry 96 % 96 % [facility] ([facility]) Room Air Body height 66 [in_i] 66 [in_i] [facility] ([facility]) 5'6" Body weight 346.00 [lb_av] 346.00 [lb_av] [facility] Body mass index (BMI) [Ratio] 55.8 kg/m2 55.8 k g/m2 [facility] ([facility]) [place] body weight 130 [lb_av] 130 [lb_av] [facility] Body weight 156.946 kg 156.946 kg [facility] ([facility]) Body surface area Derived from formula 2.52 m2 2.52 m2 [facility] ([facility]) Body height 66 [in_i] 66 [in_i] [facility] ([facility]) 5'6"
[2021-07-22 10:51] LABS: BLOOD UREA NITROGEN 16 MG/DL (7-18); CALCIUM LEVEL 8.5 MG/DL (8.8-10.2); CARBON DIOXIDE LEVEL 26 MEQ/L (21-32); CHLORIDE LEVEL 110 MEQ/L (98-107); CREATININE FOR GFR 0.72 MG/DL (0.55-1.30); GLOMERULAR FILTRATION RATE > 60.0 (>45); GLUCOSE, FASTING 116 MG/DL (70-100); POTASSIUM SERUM 4.6 MEQ/L (3.5-5.1); SODIUM LEVEL 140 MEQ/L (136-145); T UPTAKE 38 % (30-39)
[2021-07-22] MEDS ORDERED: DIGOXIN INJ 0.5 MG/2 ML AMP (J1160) IV STA (11:09)
[2021-07-22 11:45] LABS: NT-PRO BNP 1420 PG/ML (<125)
[2021-07-22 11:49] LABS: INR 0.93; PROTHROMBIN TIME 12.9 SECONDS (12.7-14.5)
[2021-07-22] MEDS ORDERED: METOPROLOL TART 25 MG TABLET PO SCH (12:00)
[2021-07-22] MEDS ORDERED: BENA25CA4 PO (12:21)
[2021-07-22] MEDS ORDERED: SPIR12.9 INH (12:21)
[2021-07-22] MEDS ORDERED: VENTAER INH (12:21)
[2021-07-22] MEDS ORDERED: ADVA230A INH (12:21)
[2021-07-22] MEDS ORDERED: CETI-24 PO (12:21)
[2021-07-22] MEDS ORDERED: ALBU83IN INH (12:21)
[2021-07-22] MEDS ORDERED: HOME MED LIST COMPLETE! XX SCH (12:25)
[2021-07-22 12:43] LABS: RSV AMPLIFICATION NEGATIVE (NEGATIVE)
[2021-07-22] MEDS ORDERED: METOPROLOL 5 MG/5 ML VIAL IV STA (12:48)
[2021-07-22 13:58] LABS: CK-MB VALUE MASS 1.4 NG/ML (<3.6); CPK CREATINE PHOSPHOKINASE 39 U/L (26-192); MB/CK RELATIVE INDEX 3.59 (< OR =4); TROPONIN I < 0.02 NG/ML (< 0.10)
[2021-07-22] MEDS ORDERED: FUROSEMIDE 40MG/4ML VIAL (J1940) IV ONE (14:00)
[2021-07-22] MEDS: METOPROLOL 5 MG/5 ML VIAL IV SCH ×2 (14:05→14:10)
[2021-07-22 15:42] VITALS: BP 128/85
[2021-07-22] MEDS ORDERED: ALBUTEROL SULFATE 2.5 MG/0.5 ML INH NEB SOLN INH PRN (16:45)
[2021-07-22] MEDS ORDERED: ALBUTEROL 90 MCG/ACT 8GM HFA INHALER INH PRN (16:45)
[2021-07-22] MEDS ORDERED: KETOROLAC 30 MG/ML 1ML VIAL IV ONE ×2 (16:45→16:55)
[2021-07-22 17:00] VITALS: BP 126/95
--- NOTE | 2021-07-22 17:04 | HPEPDOC ---
[facility] Medical History & Physical Date of Admission Jul 22, 2021 Date of Service: Jul 22, 2021 History and Physical CHIEF COMPLAINT: Chest pain and shortness of breath HISTORY OF PRESENT ILLNESS: Patient is a 60-year-old female with a past medical history of asthma, "SA node deficiency" presenting to the ED for chest pain and shortness of breath. Patient states that she has been having shortness of breath, coughing and chest pain since January 2021 which is progressively getting worse. She chalked up her shortness of breath and coughing to her asthma; saw her bladder trimmer Dr. Shea who in office discovered that her heart rate was 180 at that time. He recommended that she go see a residential counselor; she went to her cardiology appointment this morning and she was recommended to go to the ED. Patient describes her chest pain as a pressure, sharp pain and heart in her throat; pain lasts for about 20 minutes and comes and goes. Her chest pain is worse with exertion. Patient notes that she does have a pacemaker as she has "SA node deficiency". Patient is also describing wheezing, coughing and palpitations. Based on her abnormal EKG which could suggest atrial flutter, hospitalist was contacted for admission. PAST MEDICAL HISTORY: 1. Asthma 2. SA node dysfunction with pacemaker 3. Arthritis PAST SURGICAL HISTORY: 1. Appendectomy 2. Cholecystectomy 3. 4. Hysterectomy 5. 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 REVIEW OF SYSTEMS: CONSTITUTIONAL: Denies fevers, chills, night chills, fatigue HEENT: Denies any headaches, changes in vision, changes in hearing CARDIOVASCULAR: + Chest pain, palpitations RESPIRATORY: + Coughing, shortness of breath GASTROINTESTINAL: + Nausea, denies abdominal pain HEMATOLOGIC/LYMPHATIC: Swelling her legs HOME MEDICATIONS: Please see below. PHYSICAL EXAMINATION: VITAL SIGNS: See below GENERAL APPEARANCE: Well nourished and hydrated, in no acute distress HEENT: PERRLA, EOMI, moist mucous membranes CARDIOVASCULAR: Tachycardic, no murmurs noted LUNGS: Clear to auscultation bilaterally; no wheezes, rhonchi or rales ABDOMEN: Soft obese abdomen, normal bowel sounds, no tenderness to palpation EXTREMITIES: Lower extremity bilateral +1 pitting edema right worse than left LABORATORY DATA: See below. IMAGING: Chest x-ray: " Impression: No acute cardiopulmonary process appreciated." MICROBIOLOGY: Please see below. ASSESSMENT: 60-year-old female with past medical history of asthma, SA node dysfunction, osteoarthritis presents with chest pain and shortness of breath concerning for possible atrial flutter. . PLAN: 1. Possible atrial flutter/chest pain -Patient will be placed on telemetry for continuous cardiac monitoring. In ED patient was given digoxin once. Will start patient on IV metoprolol 5 mg once for rate control and also PO metoprolol 25 mg q6h - Patient is placed on Lovenox therapeutic (120 BID) for anticoagulation - Will obtain an echocardiogram - Tylenol as needed for pain control 2. Possible right-sided heart failure - In the ED, BNP was 1420 - Will obtain an echocardiogram - One-time dosage of IV Lasix 40 mg as patient has bilateral leg edema 3. SA node dysfunction -Patient has pacemaker for her SA node dysfunction 4. Asthma -We will continue her home medications: Advair, Spiriva, albuterol 5. DVT prophylaxis - Will start Lovenox therapeutic Vital Signs Vital Signs Date Time Temp Pulse Resp B/P (MAP) Pulse Ox O2 Delivery O2 Flow Rate FiO2 07/22/21 11:45 20 143/96 (112) 07/22/21 11:42 135 97 Room Air 07/22/21 09:28 98.5 Laboratory Data Labs 24H Laboratory Tests 2 07/22/21 09:52: Immature Granulocyte % (Auto) 0.7, Neutrophils (%) (Auto) 82.6H, Lymphocytes (%) (Auto) 8.2L, Monocytes (%) (Auto) 7.7, Eosinophils (%) (Auto) 0.4, Basophils (%) (Auto) 0.4, Neutrophils # (Auto) 6.8, Lymphocytes # (Auto) 0.7L, Monocytes # (Auto) 0.6, Eosinophils # (Auto) 0.0, Basophils # (Auto) 0.0, Nucleated Red Blood Cells % (auto) 0.0, Prothrombin Time 12.9, Prothromb Time International Ratio 0.93, Anion Gap 4L, Glomerular Filtration Rate > 60.0, Calcium Level 8.5L, UI-Nbv-D-Type Natriuretic Peptide 1420H, Thyroid Stimulating Hormone (TSH) 1.47 0, Free Thyroxine Index 3.0, Thyroxine (T4) 8.0, Triiodothyronine (T3) Uptake 38 07/22/21 09:58: POC Troponin I (Misc) 0.00 07/22/21 11:46: Coronavirus (COVID-19)(PCR) NEGATIVE, Influenza Type A (RT-PCR) NEGATIVE, Influenza Type B (RT-PCR) NEGATIVE, Respiratory Syncytial Virus (PCR) NEGATIVE 07/22/21 13:04: CBC/BMP Laboratory Tests 07/22/21 09:52 Home Medications Scheduled Fluticasone Propion/Salmeterol (Advair Hfa 230-21 Mcg Inhaler) 12 Gm Hfa.aer.ad, 2 PUFFS INH BID Tiotropium [place] (Spiriva Respimat) 4 Gm Mist.inhal, 2 PUFFS INH DAILY Scheduled PRN Albuterol Sulf (Albuterol Sulfate) 2.5 Mg/3 Ml Vial.neb, 2.5 MG INH Q4H PRN for SHORTNESS OF BREATH Albuterol Sulfate (Ventolin Hfa) 18 Gm Hfa.aer.ad, 2 PUFFS INH QID PRN for SHORTNESS OF BREATH Cetirizine HCl (Cetirizine HCl) 10 Mg Tablet, 10 MG PO DAILY PRN for ALLERGIES Diphenhydramine HCl (Benadryl) 25 Mg Capsule, 25 MG PO Q6H PRN for ALLERGIES Allergies Coded Allergies: ENVIROMENTAL (Verified Allergy, Mild, SNEEZING, 03/26/14) TAPE (Verified Allergy, Mild, RASH, 03/26/14) azithromycin (Verified Adverse Reaction, Intermediate, BLOTCHY, PAINFUL ARM, 04/10/19) A-FIB/CHADSVASC A-FIB History Current/History of A-Fib/PAF?: Yes Current PO Anticoag Therapy: No GME ATTESTATION GME ATTESTATION My faculty preceptor for this patient encounter was physically present during the encounter and was fully available. All aspects of the patient interview, examination, medical decision making process, and medical care plan development were reviewed and approved by the faculty preceptor. The faculty preceptor is aware and concurs with the plan as stated in the body of this note and will attest to such by his/her cosignature. ATTENDING NOTE I, Connie Gardiner, have independently examined this patient and performed my own physical exam, as well as reviewed the documentation and edited where necessary. I have discussed in detail with the resident / student the findings and plan of treatment as documented by the resident / student and edited their note. I agree with their findings and treatment plan and have edited their documentation. I will continue to follow the patient during this hospital stay. Cindy Eastman DO Jul 22, 2021 14:29 CONNIE GARDINER MD Jul 22, 2021 17:04
[2021-07-22] MEDS: ENOXAPARIN 120MG/0.8ML SYRINGE (J1650 PER 10MG) SC SCH (17:43)
[2021-07-22] MEDS ORDERED: GLUCOSE 4GM CHEW TABLET PO PRN (17:55)
[2021-07-22] MEDS ORDERED: GLUCAGON INJ 1MG VIAL SC PRN (17:55)
[2021-07-22] MEDS ORDERED: DEXTROSE 50% 50 ML SYRINGE IV PRN (17:55)
[2021-07-22 18:20] VITALS: BP 152/89
[2021-07-22 18:35] VITALS: BP 125/80
[2021-07-22] MEDS: BENZONATATE 100 MG CAP PO SCH (19:02)
[2021-07-22] MEDS: ADVAIR HFA 230/21MCG INHALER INH SCH (19:48)
[2021-07-22 20:00] VITALS: BP 141/74
[2021-07-22] MEDS: ACETAMINOPHEN TAB 650MG DOSE (2X325MG) PO PRN (20:16)
--- NOTE | 2021-07-22 20:30 | ECGEPIP ---
[facility] - ED Test Date: 2021-07-22 Pat Name: TAHIR DON Department: Room: [facility] Gender: Female Grey Roll Man: SHANNAN : 1960 Requested By: Anne Ford Order Number: [id number] Reading MD: Justin Espinal Measurements Intervals [place] Rate: 130 P: CO: QRS: 5 QRSD: 80 T: 75 QT: 386 QTc: 568 Interpretive Statements Atrial flutter with rapid ventricular response Nonspecific T wave abnormality Previous available tracings show sinus or paced rhythms Electronically Signed on 07-22-2021 20:29:41 EDT by Justin Espinal
[2021-07-23] VITALS (7 sets, daily range): BP systolic 119–162; BP diastolic 59–103
[2021-07-23] MEDS ORDERED: LEVALBUTEROL HFA 45MCG/ACT 15 GM INHALER INH PRN (00:15)
[2021-07-23 00:31] LABS: MAGNESIUM LEVEL 2.3 MG/DL (1.8-2.4)
[2021-07-23] MEDS ORDERED: guaiFENesin DM *SUGAR FREE* 5ML**DIABETIC TUSSIN DM PO ONE (01:00)
[2021-07-23] MEDS: ENOXAPARIN 120MG/0.8ML SYRINGE (J1650 PER 10MG) SC SCH ×2 (05:00→17:19)
[2021-07-23 05:22] LABS: HEMATOCRIT 38.9 % (36.0-47.0); HEMOGLOBIN 12.3 g/dl (12.0-15.5); MEAN CORPUSCULAR HEMOGLOBIN 28.3 pg (27.0-33.0); MEAN CORPUSCULAR HGB CONC 31.6 g/dl (32.0-36.5); MEAN CORPUSCULAR VOLUME 89.4 fl (80.0-96.0); PLATELET COUNT, AUTOMATED 168 10^3/uL (150-450); RED BLOOD COUNT 4.35 10^6/uL (4.00-5.40); WHITE BLOOD COUNT 4.9 10^3/uL (4.0-10.0)
[2021-07-23 05:51] LABS: BLOOD UREA NITROGEN 18 MG/DL (7-18); CALCIUM LEVEL 8.3 MG/DL (8.8-10.2); CARBON DIOXIDE LEVEL 28 MEQ/L (21-32); CHLORIDE LEVEL 109 MEQ/L (98-107); CREATININE FOR GFR 0.72 MG/DL (0.55-1.30); GLOMERULAR FILTRATION RATE > 60.0 (>45); GLUCOSE, FASTING 107 MG/DL (70-100); POTASSIUM SERUM 3.9 MEQ/L (3.5-5.1); SODIUM LEVEL 140 MEQ/L (136-145)
[2021-07-23] MEDS: TIOTROPIUM INHALER/CAPSULE (SPIRIVA) INH SCH (07:28)
[2021-07-23] MEDS: ADVAIR HFA 230/21MCG INHALER INH SCH ×2 (07:28→20:36)
[2021-07-23] MEDS: ACETAMINOPHEN TAB 650MG DOSE (2X325MG) PO PRN ×2 (08:04→15:56)
[2021-07-23] MEDS: BENZONATATE 100 MG CAP PO SCH ×3 (08:04→20:06)
[2021-07-23] MEDS: CETIRIZINE (ZyrTEC) 10 MG TAB PO SCH (08:04)
[2021-07-23] MEDS: LEVEMIR (INSULIN DETEMIR) 1 UNITS/0.01ML SC SCH (08:09)
[2021-07-23] MEDS: guaiFENesin ER 600 MG TAB PO SCH ×2 (09:29→20:06)
[2021-07-23] MEDS: AUGMENTIN 875 MG TAB PO SCH ×2 (09:29→20:06)
[2021-07-23] MEDS: FLUTICASONE PROP 0.05% NASAL SPRAY 16 GM (FLONASE) NARES SCH (09:29)
[2021-07-23] MEDS ORDERED: SLF 3 ML SYR IV PRN (09:45)
--- NOTE | 2021-07-23 10:02 | IPNPDOC ---
Date Seen The patient was seen on 07/23/21. Progress Note SUBJECTIVE: Patient is a 60-year-old female who was admitted to the hospital with atrial flutter. Patient states that she has been coughing a lot overnight, has a stuffy nose and postnasal drip. She says that her mucus "tastes funny". She also states that she had a rough night. CPAP machine was seen at bedside; pt currently sitting upright on room air. Patient states that she is not a diabetic and does not take insulin (insulin was listed as a home medication; is now discontinued). In the morning she had an episode of chest pain which resolved spontaneously. ECG was done at that time showing a pattern of atrial flutter. She should be getting her echocardiogram today. OBJECTIVE PHYSICAL EXAMINATION: VITAL SIGNS: Please see below. GENERAL APPEARANCE: Well nourished and hydrated, in no acute distress HEENT: Tenderness to palpation over the maxillary sinuses CARDIOVASCULAR: Tachycardic, no murmurs noted LUNGS: Diffuse wheezing bilaterally ABDOMEN: Soft obese abdomen, normal bowel sounds, no tenderness to palpation EXTREMITIES: Lower extremity bilateral +1 pitting edema LABORATORY DATA, IMAGING STUDIES, MICROBIOLOGY: Please see below. Echocardiogram: Pending DVT prophylaxis ordered?: Yes; Lovenox therapeutic 120 mg BID ASSESSMENT AND PLAN: This is a 60-year-old female with chest pain and shortness of breath concerning for possible atrial flutter. PROBLEMS: PLAN: Atrial flutter - Patient will be placed on telemetry for continuous cardiac monitoring; pt in ED received digoxin once; trial of IV metoprolol and PO metoprolol 25mg q6h which did not help with her rate control; pt then had trial with IV cardiazem 15mg then 20mg - Patient's round kiln drawer Dr. Erickson was contacted and recommended start patient on Digoxin 0.25mg q6h for 4 doses; then continue with Digoxin 0.25mg once daily after the 4 doses. Also suggested starting patient on Cardizem 60mg q6h. Will follow the plan that is suggested. - Patient will follow up with Dr. Erickson outpatient after hospitalization - Lovenox therapeutic (120 BID) for anticoagulation - Will obtain an echocardiogram today - Tylenol as needed for pain control Chest pain - Following IV cardiazem dose this morning, patient experienced midsternal chest pain which was reproducible to palpation - ECG was done at that time showing a pattern of atrial flutter with no acute ST changes - Troponins were drawn <0.02 Possible right-sided heart failure - In the ED, BNP was 1420; one-time dosage of IV Lasix 40 mg was given yesterday - Pending echocardiogram - Start patient on PO torsemide 20 mg daily Sinusitis - Continue Tessalon Perles for cough - Start Mucinex, Flonase - Will stat Augmentin (Day#1) SA node dysfunction - Has pacemaker for her SA node dysfunction Asthma - We will continue her home medications: Advair, Spiriva - Start on levalbuterol (as it has less cardio effects than albuterol) PRITI - Continue CPAP machine overnight DVT prophylaxis - c/w Lovenox therapeutic (120mg BID) for anticoagulation DISPOSITION: Pending clinical improvement. VS, I&O, 24H, Fishbone Vital Signs/I&O Vital Signs Date Time Temp Pulse Resp B/P (MAP) Pulse Ox O2 Delivery O2 Flow Rate FiO2 07/23/21 08:05 128 133/69 07/23/21 07:10 97.7 18 100 Nasal Cannula 2.0 I&O- Last 24 Hours up to 6 AM 07/23/21 05:59 Intake Total 480 ml Output Total 1650 ml Balance -1170 ml Laboratory Data 24H LABS Laboratory Tests 2 07/22/21 09:52: Immature Granulocyte % (Auto) 0.7, Neutrophils (%) (Auto) 82.6H, Lymphocytes (%) (Auto) 8.2L, Monocytes (%) (Auto) 7.7, Eosinophils (%) (Auto) 0.4, Basophils (%) (Auto) 0.4, Neutrophils # (Auto) 6.8, Lymphocytes # (Auto) 0.7L, Monocytes # (Auto) 0.6, Eosinophils # (Auto) 0.0, Basophils # (Auto) 0.0, Nucleated Red Blood Cells % (auto) 0.0, Prothrombin Time 12.9, Prothromb Time International Ratio 0.93, Anion Gap 4L, Glomerular Filtration Rate > 60.0, Calcium Level 8.5L, VJ-Vak-Q-Type Natriuretic Peptide 1420H, Thyroid Stimulating Hormone (TSH) 1.470, Free Thyroxine Index 3.0, Thyroxine (T4) 8.0, Triiodothyronine (T3) Uptake 38 07/22/21 09:58: POC Troponin I (Misc) 0.00 07/22/21 11:46: Coronavirus (COVID-19)(PCR) NEGATIVE, Influenza Type A (RT-PCR) NEGATIVE, Influenza Type B (RT-PCR) NEGATIVE, Respiratory Syncytial Virus (PCR) NEGATIVE 07/22/21 13:04: Magnesium Level 2.3, Total Creatine Kinase 39, Creatine Kinase MB 1.4, Creatine Kinase MB Relative Index 3.59, Troponin I < 0.02 07/22/21 17:30: Bedside Glucose (Misc Panel) 102 07/22/21 20:06: Bedside Glucose (Misc Panel) 118H 07/23/21 04:57: Nucleated Red Blood Cells % (auto) 0.0, Anion Gap 3L, Glomerular Filtration Rate > 60.0, Calcium Level 8.3L CBC/BMP Laboratory Tests 07/22/21 09:52 07/23/21 04:57 GME ATTESTATION GME ATTESTATION My faculty preceptor for this patient encounter was physically present during the encounter and was fully available. All aspects of the patient interview, examination, medical decision making process, and medical care plan development were reviewed and approved by the faculty preceptor. The faculty preceptor is aware and concurs with the plan as stated in the body of this note and will attest to such by his/her cosignature. ATTENDING NOTE I, Connie Gardiner, have independently examined this patient and performed my own physical exam, as well as reviewed the documentation and edited where necessary. I have discussed in detail with the resident / student the findings and plan of treatment as documented by the resident / student and edited their note. I agree with their findings and treatment plan and have edited their documentation. I will continue to follow the patient during this hospital stay. Cindy Eastman DO Jul 23, 2021 10:02 CONNIE GARDINER MD Jul 23, 2021 12:27
[2021-07-23 10:12] LABS: CK-MB VALUE MASS 1.9 NG/ML (<3.6); CPK CREATINE PHOSPHOKINASE 41 U/L (26-192); MB/CK RELATIVE INDEX 4.63 (< OR =4); TROPONIN I < 0.02 NG/ML (< 0.10)
[2021-07-23] MEDS: TORSEMIDE 20 MG TAB PO SCH (10:51)
--- NOTE | 2021-07-23 10:57 | ECGEPIP ---
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
[2021-07-23] MEDS: DIGOXIN 0.25 MG TAB PO SCH ×3 (11:01→23:17)
[2021-07-23 11:50] LABS: HEMOGLOBIN A1c 5.9 %
[2021-07-23] MEDS: LEVALBUTEROL 1.25 MG/0.5 ML CONCENTRATE NEB INH PRN (15:30)
[2021-07-23] MEDS: SLF 3 ML SYR IV SCH ×2 (15:57→22:02)
[2021-07-23] MEDS ORDERED: CEPACOL LOZENGE PO PRN (17:10)
[2021-07-23] MEDS: CEPACOL LOZENGE PO PRN (17:36)
[2021-07-23] MEDS: methylPREDNISolone 125MG 2ML VIAL IV SCH (18:51)
[2021-07-23] MEDS ORDERED: FLUTICASONE HFA 44 MCG 10.6GM INHALER (FLOVENT) INH SCH (20:00)
[2021-07-23] MEDS ORDERED: METOPROLOL 5 MG/5 ML VIAL IV STA (21:59)
[2021-07-24] VITALS: BP 120/73
[2021-07-24 04:00] VITALS: BP 133/75
[2021-07-24] MEDS: METOPROLOL 5 MG/5 ML VIAL IV SCH ×3 (04:10→06:15)
[2021-07-24] MEDS: ENOXAPARIN 120MG/0.8ML SYRINGE (J1650 PER 10MG) SC SCH ×2 (05:02→16:20)
[2021-07-24] MEDS: DIGOXIN 0.25 MG TAB PO SCH (05:03)
[2021-07-24] MEDS: SLF 3 ML SYR IV SCH ×3 (05:04→22:02)
[2021-07-24] MEDS: methylPREDNISolone 125MG 2ML VIAL IV SCH ×2 (06:14→18:06)
[2021-07-24 06:27] LABS: HEMATOCRIT 43.9 % (36.0-47.0); HEMOGLOBIN 13.8 g/dl (12.0-15.5); MEAN CORPUSCULAR HEMOGLOBIN 27.8 pg (27.0-33.0); MEAN CORPUSCULAR HGB CONC 31.4 g/dl (32.0-36.5); MEAN CORPUSCULAR VOLUME 88.5 fl (80.0-96.0); PLATELET COUNT, AUTOMATED 152 10^3/uL (150-450); RED BLOOD COUNT 4.96 10^6/uL (4.00-5.40); WHITE BLOOD COUNT 6.3 10^3/uL (4.0-10.0)
[2021-07-24] MEDS: MAALOX 30 ML SUSP *UDC PO PRN (06:29)
[2021-07-24 06:52] LABS: BLOOD UREA NITROGEN 15 MG/DL (7-18); CARBON DIOXIDE LEVEL 24 MEQ/L (21-32); CHLORIDE LEVEL 107 MEQ/L (98-107); CREATININE FOR GFR 0.78 MG/DL (0.55-1.30); GLOMERULAR FILTRATION RATE > 60.0 (>45); GLUCOSE, FASTING 164 MG/DL (70-100); POTASSIUM SERUM 4.5 MEQ/L (3.5-5.1); SODIUM LEVEL 138 MEQ/L (136-145)
[2021-07-24] MEDS: ADVAIR HFA 230/21MCG INHALER INH SCH ×2 (07:22→19:35)
[2021-07-24] MEDS: TIOTROPIUM INHALER/CAPSULE (SPIRIVA) INH SCH (07:22)
[2021-07-24 07:42] VITALS: BP 146/72
[2021-07-24] MEDS: TORSEMIDE 20 MG TAB PO SCH (08:26)
[2021-07-24] MEDS: AUGMENTIN 875 MG TAB PO SCH ×2 (08:27→20:27)
[2021-07-24] MEDS: CETIRIZINE (ZyrTEC) 10 MG TAB PO SCH (08:27)
[2021-07-24] MEDS: guaiFENesin ER 600 MG TAB PO SCH ×2 (08:27→20:27)
[2021-07-24] MEDS: BENZONATATE 100 MG CAP PO SCH ×3 (08:27→20:28)
[2021-07-24] MEDS: FLUTICASONE PROP 0.05% NASAL SPRAY 16 GM (FLONASE) NARES SCH (08:27)
--- NOTE | 2021-07-24 10:32 | IPNPDOC ---
Date Seen The patient was seen on 07/24/21. Progress Note SUBJECTIVE: Patient is a 60-year-old female who was admitted to the hospital with atrial flutter. Patient states that she slept more last night than the previous night. States that her cough has been getting much better after respiratory therapy gave her an Acapella device in combination the new medications added on. She would like some more cough lozenges as they help soothe her sore throat after coughing fits. She also states that she went to urinate a lot yesterday and feels like she "got rid of a lot of fluid and I feel much better". When speaking with her, her heart rate fluctuated between 90-120. OBJECTIVE PHYSICAL EXAMINATION: VITAL SIGNS: Please see below. GENERAL APPEARANCE: Well nourished and hydrated, in no acute distress HEENT: Mild tenderness to palpation over maxillary sinuses CARDIOVASCULAR: Tachycardic with no murmurs noted LUNGS: much improved from yesterday; faint wheezing at lung bases ABDOMEN: Soft obese abdomen, normal bowel sounds, no tenderness to palpation EXTREMITIES: Lower extremity bilateral +1 pitting edema LABORATORY DATA, IMAGING STUDIES, MICROBIOLOGY: Please see below. Echocardiogram: Pending DVT prophylaxis ordered?: Yes; Lovenox therapeutic 120 mg BID ASSESSMENT AND PLAN: This is a 60-year-old female with chest pain and shortness of breath concerning for possible atrial flutter. PROBLEMS: Atrial flutter - Patient will be placed on telemetry for continuous cardiac monitoring; pt in ED received digoxin once; trial of IV metoprolol and PO metoprolol 25mg q6h which did not help with her rate control; pt then had trial with IV cardiazem 15mg then 20mg - Patient's capital markets specialist Dr. Erickson was contacted and recommended start patient on Digoxin 0.25mg q6h for 4 doses; then continue with Digoxin 0.25mg once daily after the 4 doses. Also suggested starting patient on Cardizem 60mg q6h. Patient will follow up with Dr. Erickson outpatient after hospitalization - Digoxin 0.25mg q6h for 4 doses (completed); Start Digoxin 0.25mg daily - Digoxin level for tomorrow - c/w PO Cardizem; increased to 90mg q6h - Lovenox therapeutic (120 BID) for anticoagulation - Echocardiogram done yesterday; pending report - Tylenol as needed for pain control Chest pain - since resolved - Following IV Cardizem dose yesterday, patient experienced midsternal chest pain which was reproducible to palpation - ECG was done at that time showing a pattern of atrial flutter with no acute ST changes - Troponins were drawn <0.02 Possible right-sided heart failure - In the ED, BNP was 1420; one-time dosage of IV Lasix 40 mg was given - Continue PO torsemide 20 mg daily - Pending echocardiogram report Sinusitis with cough from postnasal drip - Continue Tessalon Perles and Cepacol for cough, Mucinex, Flonase - Continue Augmentin (Day#2) SA node dysfunction - Has pacemaker for her SA node dysfunction Asthma - We will continue her home medications: Advair, Spiriva - Start on levalbuterol (as it has less cardio effects than albuterol) - Continue IV Solumedrol 60mg q12h PRITI - Continue CPAP machine overnight DVT prophylaxis - Continue Lovenox therapeutic (120mg BID) for anticoagulation DISPOSITION: - Pending clinical improvement. VS, I&O, 24H, Fishbone Vital Signs/I&O Vital Signs Date Time Temp Pulse Resp B/P (MAP) Pulse Ox O2 Delivery O2 Flow Rate FiO2 07/24/21 08:26 130 146/72 07/24/21 07:42 97.8 18 96 Room Air 07/24/21 00:00 2.0 I&O- Last 24 Hours up to 6 AM 07/24/21 06:00 Intake Total 1560 ml Output Total 5000 ml Balance -3440 ml Laboratory Data 24H LABS Laboratory Tests 2 07/23/21 09:30: Total Creatine Kinase 41, Creatine Kinase MB 1.9, Creatine Kinase MB Relative Index 4.63H, Troponin I < 0.02 07/23/21 21:04: Bedside Glucose (Misc Panel) 208H 07/24/21 05:27: Nucleated Red Blood Cells % (auto) 0.0, Anion Gap 7L, Glomerular Filtration Rate > 60.0, Calcium Level 9.0 CBC/BMP Laboratory Tests 07/24/21 05:27 GME ATTESTATION GME ATTESTATION My faculty preceptor for this patient encounter was physically present during the encounter and was fully available. All aspects of the patient interview, examination, medical decision making process, and medical care plan development were reviewed and approved by the faculty preceptor. The faculty preceptor is aware and concurs with the plan as stated in the body of this note and will a ttest to such by his/her cosignature. ATTENDING NOTE I, Connie Gardiner, have independently examined this patient and performed my own physical exam, as well as reviewed the documentation and edited where necessary. I have discussed in detail with the resident / student the findings and plan of treatment as documented by the resident / student and edited their note. I agree with their findings and treatment plan and have edited their documentation. I will continue to follow the patient during this hospital stay. Cindy Eastman DO Jul 24, 2021 09:41 CONNIE GARDINER MD Jul 24, 2021 13:10
[2021-07-24 11:02] VITALS: BP 109/72
[2021-07-24] MEDS: CEPACOL LOZENGE PO PRN ×2 (12:04→22:32)
--- NOTE | 2021-07-24 15:33 | ECHO ---
ECHOCARDIOGRAM DATE OF PROCEDURE: 07/23/2021 Age: Gender: Height: 168 cm Weight: 164 kg REFERRING PHYSICIAN: Dr. Rohan Pinon. INDICATION: Abnormal ECG. MEASUREMENTS: 2D Measurements: Left atrium 4.6 cm Left ventricle diastole 5.0 cm Interventricular septum 0.97 cm Posterior wall 1.15 cm Aortic root 3.4 cm Aortic annulus 2.5 cm Left atrium volume index 37 cm Inferior vena cava 2.1 cm with more than 50% respiratory variation Doppler Measurements: No aortic stenosis No aortic regurgitation Aortic valve velocity 118 cm/s LVOT velocity 108 cm/s Mild mitral regurgitation No mitral stenosis Mitral E velocity 102 cm/s Mild tricuspid regurgitation Estimated right ventricle systolic pressure 28-33 mmHg Estimated right atrial pressure 5-10 mmHg No pulmonic regurgitation DESCRIPTION: Rhythm was atrial flutter with variable AV conduction and with rapid ventricular response. Image quality was fair. This was a 2D, M-mode, color flow Doppler, and pulsed wave Doppler examination including mitral annular tissue Doppler. No pericardial effusion. CONCLUSIONS: 1. Normal left ventricle internal dimensions and wall thickness. Normal regional LV wall motion and wall thickening. Normal LV systolic function. LVEF 60% by visual estimate. 2. Moderate left atrial dilatation by left atrial volume index. 3. Normal right ventricle size and systolic function. Estimated right ventricle systolic pressure to be near the upper limits of normal to slightly elevated. 4. Presence of an endocardial right ventricle pacemaker lead seen in the right ventricle. 5. Otherwise normal appearing echocardiogram Doppler findings. LV diastolic function could not be adequately assessed in the setting of atrial flutter.
[2021-07-24 15:43] VITALS: BP 121/80
[2021-07-24] MEDS: LEVALBUTEROL 1.25 MG/0.5 ML CONCENTRATE NEB INH PRN ×2 (15:51→23:12)
[2021-07-24 19:20] LABS: ALBUMIN 3.5 GM/DL (3.2-5.2); BILIRUBIN,DIRECT 0.1 MG/DL (0.0-0.2); BILIRUBIN,TOTAL 0.5 MG/DL (0.2-1.0); TOTAL PROTEIN 7.4 GM/DL (6.4-8.2)
[2021-07-24 20:00] VITALS: BP 128/79
[2021-07-24] MEDS ORDERED: diphenhydrAMINE 50MG/ML VIAL (J1200) IM ONE (22:00)
[2021-07-24] MEDS: ACETAMINOPHEN TAB 650MG DOSE (2X325MG) PO PRN (23:10)
[2021-07-25] VITALS (8 sets, daily range): BP systolic 112–183; BP diastolic 57–84
[2021-07-25] MEDS: SLF 3 ML SYR IV SCH ×3 (05:01→20:18)
[2021-07-25 05:03] LABS: HEMATOCRIT 41.1 % (36.0-47.0); HEMOGLOBIN 12.8 g/dl (12.0-15.5); MEAN CORPUSCULAR HEMOGLOBIN 27.6 pg (27.0-33.0); MEAN CORPUSCULAR HGB CONC 31.1 g/dl (32.0-36.5); MEAN CORPUSCULAR VOLUME 88.6 fl (80.0-96.0); PLATELET COUNT, AUTOMATED 154 10^3/uL (150-450); RED BLOOD COUNT 4.64 10^6/uL (4.00-5.40); WHITE BLOOD COUNT 10.5 10^3/uL (4.0-10.0)
[2021-07-25 05:26] LABS: BLOOD UREA NITROGEN 22 MG/DL (7-18); CALCIUM LEVEL 8.8 MG/DL (8.8-10.2); CARBON DIOXIDE LEVEL 29 MEQ/L (21-32); CHLORIDE LEVEL 107 MEQ/L (98-107); CREATININE FOR GFR 0.75 MG/DL (0.55-1.30); GLOMERULAR FILTRATION RATE > 60.0 (>45); GLUCOSE, FASTING 160 MG/DL (70-100); POTASSIUM SERUM 4.6 MEQ/L (3.5-5.1); SODIUM LEVEL 139 MEQ/L (136-145)
[2021-07-25] MEDS: methylPREDNISolone 125MG 2ML VIAL IV SCH ×2 (06:13→17:38)
[2021-07-25] MEDS: MAALOX 30 ML SUSP *UDC PO PRN (06:14)
[2021-07-25] MEDS: CEPACOL LOZENGE PO PRN ×2 (06:14→19:27)
[2021-07-25] MEDS: TIOTROPIUM INHALER/CAPSULE (SPIRIVA) INH SCH (07:13)
[2021-07-25] MEDS: ADVAIR HFA 230/21MCG INHALER INH SCH ×2 (07:14→19:28)
[2021-07-25] MEDS: BENZONATATE 100 MG CAP PO SCH ×3 (08:05→20:17)
[2021-07-25] MEDS: guaiFENesin ER 600 MG TAB PO SCH ×2 (08:05→20:17)
[2021-07-25] MEDS: AUGMENTIN 875 MG TAB PO SCH ×2 (08:05→20:17)
[2021-07-25] MEDS: CETIRIZINE (ZyrTEC) 10 MG TAB PO SCH (08:05)
[2021-07-25] MEDS: DIGOXIN 0.25 MG TAB PO SCH (08:05)
[2021-07-25] MEDS: TORSEMIDE 20 MG TAB PO SCH (08:05)
[2021-07-25] MEDS: FLUTICASONE PROP 0.05% NASAL SPRAY 16 GM (FLONASE) NARES SCH (08:06)
[2021-07-25] MEDS: APIXABAN 5 MG TAB (ELIQUIS) PO SCH ×2 (08:06→20:17)
[2021-07-25] MEDS: LEVALBUTEROL 1.25 MG/0.5 ML CONCENTRATE NEB INH PRN (08:49)
[2021-07-25] MEDS ORDERED: DIGOXIN INJ 0.5 MG/2 ML AMP (J1160) IV ONE ×2 (11:00→17:00)
[2021-07-25] MEDS: ACETAMINOPHEN TAB 650MG DOSE (2X325MG) PO PRN (11:17)
--- NOTE | 2021-07-25 11:53 | IPNPDOC ---
Date Seen The patient was seen on 07/25/21. Progress Note SUBJECTIVE: Patient is a 60-year-old female who was admitted to the hospital with atrial flutter. Patient was seen at bedside crying as she had a terrible night. She states that multiple people yesterday was wearing perfume which set off her breathing problems and made everything very difficult. When she went to the bathroom, she noticed some facial swelling from the perfume. The nurse at that time gave her some Benadryl which calmed her down. Was able to sleep all night due to the Benadryl. She was also crying because of all her medical conditions and she feel like she can't control and is spiraling a little; she felt much better after crying and releasing her emotions. 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 After speaking to her and reassurance, patient was able to perk back up to her normal self. Heart rate was fluctuating around 90-120. OBJECTIVE PHYSICAL EXAMINATION: VITAL SIGNS: Please see below. GENERAL: crying in mild distress HEENT: Normal cephalic atraumatic CARDIOVASCULAR: Tachycardic with no murmurs noted RESPIRATORY: diffuse wheezing bilaterally ABDOMINAL: Soft obese abdomen, normal bowel sounds, no tenderness to palpation EXTREMITIES: Lower extremity bilateral +1 pitting edema LABORATORY DATA, IMAGING STUDIES, MICROBIOLOGY: Please see below. Echocardiogram: "1. Normal left ventricle internal dimensions and wall thickness. Normal regional LV wall motion and wall thickening. Normal LV systolic function. LVEF 60% by visual estimate. 2. Moderate left atrial dilatation by left atrial volume index. 3. Normal right ventricle size and systolic function. Estimated right ventricle systolic pressure to be near the upper limits of normal to slightly elevated. 4. Presence of an endocardial right ventricle pacemaker lead seen in the right ventricle. 5. Otherwise normal appearing echocardiogram Doppler findings. LV diastolic function could not be adequately assessed in the setting of atrial flutter." DVT prophylaxis ordered?: Yes; PO Eliquis 5mg BID ASSESSMENT AND PLAN: This is a 60-year-old female with chest pain and shortness of breath concerning for possible atrial flutter. PROBLEMS: Atrial flutter - Patient will be placed on telemetry for continuous cardiac monitoring - Patient's gear tooth lapping machine operator Dr. Erickson was again contacted and recommended continuing her on Digoxin 0.25mg once daily as well as Cardizem 120mg q6h. Also suggested giving her IV digoxin 0.25mg once followed by another IV digoxin 0.25mg six hours later today for better rate control. If patient is still not adequately rate controlled, he suggested considering verapamil instead of Cardizem. Patient will follow up with Dr. Erickson outpatient after hospitaliza tion. - c/w Digoxin 0.25mg daily - Digoxin level therapeutic - IV digoxin 0.25mg once @ 1100 and another @ 1700 if needed - Will repeat digoxin levels in AM labs - c/w PO Cardizem; increased to 120mg q6h - discontinue Lovenox therapeutic (120 BID) - start PO Eliquis 5mg BID for anticoagulation - Echocardiogram done yesterday; see report above - Tylenol as needed for pain control Possible right-sided heart failure - c/w PO torsemide 20 mg daily - Echocardiogram done yesterday; see report above Sinusitis with cough from postnasal drip - c/w Tessalon Perles and Cepacol for cough, Mucinex, Flonase - c/w Augmentin (Day#3) SA node dysfunction - Has pacemaker for her SA node dysfunction Asthma w/ episodes of exacerbation - We will continue her home medications: Advair, Spiriva - Start on levalbuterol (as it has less cardio effects than albuterol) - c/w IV Solumedrol 60mg q12h - Nursing order placed for "no perfume/scents in room" as patient states bronchospasm PRITI - c/w CPAP machine overnight DISPOSITION: Pending clinical improvement . VS, [facility]&O[facility] Vital Signs/I&O Vital Signs Date Time Temp Pulse Resp B/P (MAP) Pulse Ox O2 Delivery O2 Flow Rate FiO2 07/25/21 08:07 133 164/74 (104) 07/25/21 08:00 98.8 18 97 Room Air 07/24/21 00:00 2.0 I&O- Last 24 Hours up to 6 AM 07/25/21 06:00 Intake Total 2600 ml Output Total 3850 ml Balance -1250 ml Laboratory Data 24H LABS Laboratory Tests 2 07/24/21 11:49: Bedside Glucose (Misc Panel) 162H 07/24/21 17:50: Bedside Glucose (Misc Panel) 162H 07/24/21 18:28: Total Bilirubin 0.5, Direct Bilirubin 0.1, Aspartate Amino Transf (AST/SGOT) 9, Alanine Aminotransferase (ALT/SGPT) 23, Alkaline Phosphatase 81, Total Protein 7.4, Albumin 3.5, Albumin/Globulin Ratio 0.9L 07/24/21 20:05: Bedside Glucose (Misc Panel) 269H 07/25/21 04:41: Nucleated Red Blood Cells % (auto) 0.0, Anion Gap 3L, Glomerular Filtration Rate > 60.0, Calcium Level 8.8, Digoxin Level 1.0 CBC/BMP Laboratory Tests 07/25/21 04:41 GME ATTESTATION GME ATTESTATION My faculty preceptor for this patient encounter was physically present during the encounter and was fully available. All aspects of the patient interview, examination, medical decision making process, and medical care plan development were reviewed and approved by the faculty preceptor. The faculty preceptor is aware and concurs with the plan as stated in the body of this note and will attest to such by his/her cosignature. ATTENDING NOTE I, Connie Gardiner, have independently examined this patient and performed my own physical exam, as well as reviewed the documentation and edited where necessary. I have discussed in detail with the resident / student the findings and plan of treatment as documented by the resident / student and edited their note. I agree with their findings and treatment plan and have edited their documentation. I will continue to follow the patient during this hospital stay. Cindy Eastman DO Jul 25, 2021 10:22 CONNIE GARDINER MD Jul 25, 2021 12:59
[2021-07-25] MEDS ORDERED: hydrOXYzine 10 MG TAB PO ONE (14:30)
[2021-07-25] MEDS ORDERED: hydrOXYzine 10 MG TAB PO SCH (21:00)
[2021-07-26] VITALS: BP 144/65
[2021-07-26 04:00] VITALS: BP 156/73
[2021-07-26 04:03] LABS: HEMOGLOBIN 13.1 g/dl (12.0-15.5); MEAN CORPUSCULAR HEMOGLOBIN 28.4 pg (27.0-33.0); MEAN CORPUSCULAR VOLUME 88.7 fl (80.0-96.0); PLATELET COUNT, AUTOMATED 170 10^3/uL (150-450); RED BLOOD COUNT 4.62 10^6/uL (4.00-5.40); WHITE BLOOD COUNT 14.3 10^3/uL (4.0-10.0)
[2021-07-26 04:35] LABS: BLOOD UREA NITROGEN 24 MG/DL (7-18); CALCIUM LEVEL 8.7 MG/DL (8.8-10.2); CARBON DIOXIDE LEVEL 28 MEQ/L (21-32); CHLORIDE LEVEL 106 MEQ/L (98-107); DIGOXIN LEVEL 1.8 NG/ML (0.5-2.0); GLOMERULAR FILTRATION RATE > 60.0 (>45); GLUCOSE, FASTING 148 MG/DL (70-100); POTASSIUM SERUM 4.8 MEQ/L (3.5-5.1); SODIUM LEVEL 139 MEQ/L (136-145)
[2021-07-26] MEDS: methylPREDNISolone 125MG 2ML VIAL IV SCH (06:16)
[2021-07-26] MEDS: SLF 3 ML SYR IV SCH (06:19)
[2021-07-26] MEDS: ADVAIR HFA 230/21MCG INHALER INH SCH (07:28)
[2021-07-26] MEDS: TIOTROPIUM INHALER/CAPSULE (SPIRIVA) INH SCH (07:28)
[2021-07-26] MEDS: LEVALBUTEROL 1.25 MG/0.5 ML CONCENTRATE NEB INH PRN (07:40)
[2021-07-26 08:00] VITALS: BP 137/90
[2021-07-26] MEDS: CETIRIZINE (ZyrTEC) 10 MG TAB PO SCH (08:33)
[2021-07-26] MEDS: AUGMENTIN 875 MG TAB PO SCH (08:33)
[2021-07-26] MEDS: guaiFENesin ER 600 MG TAB PO SCH (08:33)
[2021-07-26] MEDS: APIXABAN 5 MG TAB (ELIQUIS) PO SCH (08:33)
[2021-07-26] MEDS: TORSEMIDE 20 MG TAB PO SCH (08:34)
[2021-07-26] MEDS: FLUTICASONE PROP 0.05% NASAL SPRAY 16 GM (FLONASE) NARES SCH (08:34)
[2021-07-26] MEDS: DIGOXIN 0.25 MG TAB PO SCH (08:34)
[2021-07-26] MEDS: BENZONATATE 100 MG CAP PO SCH (08:34)
[2021-07-26 11:08] VITALS: BP 137/90
[2021-07-26] MEDS ORDERED: TORS20TA2 PO (11:30)
[2021-07-26] MEDS ORDERED: ELIQ5TAB PO (11:30)
[2021-07-26] MEDS ORDERED: DIGO0.253 PO (11:30)
[2021-07-26] MEDS ORDERED: FLUTISP NARES (11:30)
[2021-07-26] MEDS ORDERED: PRED10TA2 PO (11:30)
[2021-07-26] MEDS ORDERED: HYDR-643 PO (11:30)
[2021-07-26] MEDS ORDERED: MUCI600T31 PO (11:30)
[2021-07-26] MEDS ORDERED: CARD120C3 PO (11:30)
[2021-07-26] MEDS ORDERED: AMOX875T2 PO (11:30)
--- NOTE | 2021-07-26 13:49 | DS.PDOC ---
Discharge Summary General Date of Admission Jul 22, 2021 at 12:10 Date of Discharge July 26, 2021 Discharge Summary PROCEDURES PERFORMED DURING STAY: [None]. ADMITTING DIAGNOSES: 1. Atrial flutter 2. SA node dysfunction with pacemaker 3. Asthma DISCHARGE DIAGNOSES: 1. Atrial flutter 2. SA node dysfunction with pacemaker 3. Asthma COMPLICATIONS/CHIEF COMPLAINT: Atrial Flutter. HISTORY OF PRESENT ILLNESS: Patient is a 60-year-old female with a past medical history of asthma, "SA node deficiency" presenting to the ED for chest pain and shortness of breath. She states that she has been having shortness of breath, coughing and chest pain since January 2021 which is progressively getting worse. She chalked up her shortness of breath and coughing to her asthma; saw her jewelry designer Dr. Shea in office who discovered that her heart rate was 180. He recommended that she go see a coin purse assembler; during her cardiology appointment, she was recommended to go to the ED. Patient notes that she does have a pacemaker as she has "SA node deficiency". Based on her abnormal EKG which could suggest atrial flutter, hospitalist was contacted for admission. HOSPITAL COURSE: Patient was placed onto Telemetry for continuous cardiac monitoring. At that time, patient was started on IV metoprolol 5 mg once for rate control, PO metoprolol 25 mg q6h and Lovenox 120mg BID. However, metoprolol did not help with rate control and a trial of Cardizem was given. Patient's coin purse assembler Dr. Erickson was contacted and recommended start patient on Digoxin 0.25mg q6h for 4 doses; then continue with Digoxin 0.25mg once daily after the 4 doses. He also suggested starting patient on Cardizem 60mg q6h. His plan was followed. Cardizem was then increased to 90mg q6h then to 120mg q6h which gave her better rate control. Again spoke with Dr. Erickson who dated that a flutter was notoriously difficult to control. He also suggested giving her IV digoxin 0.25 mg once followed by another IV digoxin 6 hours later for better rate control. She was then also put on PO Eliquis 5 mg BID for anticoagulation instead of therapeutic Lovenox. At this point her heart rate dropped down to the 90s which was significantly better than her heart rate of 148 which she came in with. Patient will be discharged on Cardizem ER 240mg BID, digoxin 0.25mg daily and Eliquis 5mg BID for atrial flutter. As patient had shortness of breath, pitting edema, history of asthma with acute exacerbation and a BNP of 1420 right sided heart failure was suggested. One time dose of IV Lasix 40 mg was given and patient was started on PO torsemide 20 daily. Echocardiogram was done for further evaluation. She had an episode of chest pain which resolved without intervention; troponins were negative and ECG did not show any acute ST segment changes. Echocardiogram showed normal LV systolic function with LVEF 60% by visual estimate and LV diastolic function could not be adequately assessed in the setting of atrial flutter. Patient was also complaining of increased coughing , dyspnea, environmental allergies. She was given Tessalon Perles and Cepacol for cough, Mucinex, Flonase as she has a history of allergies. She was found to have sinusitis and was given Augmentin. She was also started on IV Solumedrol to help with her cough, wheezing and shortness of breath which improved her symptoms. However, several people was wearing perfume which triggered her environmental allergies which made her symptoms come back. Patient was also started on Hydroxyzine for her anxiety, which brought her back to baseline. DISCHARGE MEDICATIONS: Please see below. ALLERGIES: Please see below. PHYSICAL EXAMINATION ON DISCHARGE: VITAL SIGNS: Please see below. GENERAL: calm and happy; in no acute distress HEENT: normal cephalic atraumatic CARDIOVASCULAR EXAMINATION: Tachycardic with no murmurs noted RESPIRATORY EXAMINATION: Clear to auscultation bilaterally ABDOMINAL EXAMINATION: Soft obese abdomen, normal bowel sounds, no tenderness to palpation EXTREMITIES: Lower extremity bilateral +1 pitting edema PSYCHIATRIC EXAMINATION: Appropriate mood and affect LABORATORY DATA: Please see below. IMAGING: Chest X-ray: "No acute cardiopulmonary process appreciated." Echocardiogram: "1. Normal left ventricle internal dimensions and wall thickness. Normal regional LV wall motion and wall thickening. Normal LV systolic function. LVEF 60% by visual estimate. 2. Moderate left atrial dilatation by left atrial volume index. 3. Normal right ventricle size and systolic function. Estimated right ventricle systolic pressure to be near the upper limits of normal to slightly elevated. 4. Presence of an endocardial right ventricle pacemaker lead seen in the right ventricle. 5. Otherwise normal appearing echocardiogram Doppler findings. LV diastolic function could not be adequately assessed in the setting of atrial flutter." PROGNOSIS: Good ACTIVITY: As tolerated. DIET: as tolerated DISCHARGE INSTRUCTIONS: 1. Please follow-up with PCP within the next week 2. Please follow-up with Dr. Erickson as scheduled in 1 week 3. Please finish course of Augmentin (4 days left) 4. Please take Cardizem ER 240mg twice a day, digoxin 0.25mg daily and Eliquis 5mg twice a day 5. Please continue Torsemide 20 daily 6. Please continue prednisone taper until completed 7. If symptoms worsen, please go to the emergency room. DISCHARGE CONDITION: [Stable]. TIME SPENT ON DISCHARGE: 45 minutes. Vital Signs/I&Os Vital Signs Date Time Temp Pulse Resp B/P (MAP) Pulse Ox O2 Delivery O2 Flow Rate FiO2 07/26/21 11:08 93 137/90 07/26/21 08:00 97.3 24 92 Nasal Cannula 2.0 I&O- Last 24 Hours up to 6 AM 07/26/21 06:00 Intake Total 1300 ml Output Total 2900 ml Balance -1600 ml Laboratory Data Labs 24H Laboratory Tests 2 07/25/21 13:49: Bedside Glucose (Misc Panel) 222H 07/25/21 17:50: Bedside Glucose (Misc Panel) 128H 07/25/21 20:24: Bedside Glucose (Misc Panel) 180H 07/26/21 03:16: Nucleated Red Blood Cells % (auto) 0.0, Anion Gap 5L, Glomerular Filtration Rate > 60.0, Calcium Level 8.7L, Digoxin Level 1.8 CBC/BMP Laboratory Tests 07/26/21 03:16 FSBS Laboratory Tests Test 07/25/21 13:49 07/25/21 17:50 07/25/21 20:24 Range/Units Bedside Glucose (Misc Panel) 222 128 180 80-115 MG/DL Discharge Medications Scheduled Amoxicillin/Potassium Clav (Amox-Clav 875-125 mg Tablet) 1 Each Tablet, 875 MG PO BID for sinusitis Apixaban (Eliquis) 5 Mg Tablet, 5 MG PO BID Digoxin (Digoxin) 250 Mcg Tablet, 0.25 MG PO DAILY Diltiazem Hcl (Cardizem Cd) 120 Mg Cap.er.24h, 240 MG PO BID Fluticasone Propion/Salmeterol (Advair Hfa 230-21 Mcg Inhaler) 12 Gm Hfa.aer.ad, 2 PUFFS INH BID, (Reported) Fluticasone Propionate (Fluticasone Propionate) 16 Gm Fraser.susp, 2 SPRAY NARES DAILY Guaifenesin (Mucinex) 600 Mg Tab.er.12h, 600 MG PO BID Hydroxyzine HCl (Hydroxyzine HCl) 10 Mg Tablet, 10 MG PO QHS Prednisone (Prednisone) 10 Mg Tablet, 10 MG PO TAPER Take 4 tabs daily x 3 days, then 3 tabs daily x 3 days, then 2 tabs daily x 3 days, then 1 tab daily x 3 days and stop Tiotropium [place] (Spiriva Respimat) 4 Gm Mist.inhal, 2 PUFFS INH DAILY, (Reported) Torsemide (Torsemide) 20 Mg Tablet, 20 MG PO DAILY Scheduled PRN Albuterol Sulf (Albuterol Sulfate) 2.5 Mg/3 Ml Vial.neb, 2.5 MG INH Q4H PRN for SHORTNESS OF BREATH, (Reported) Albuterol Sulfate (Ventolin Hfa) 18 Gm Hfa.aer.ad, 2 PUFFS INH QID PRN for SHORTNESS OF BREATH, (Reported) Cetirizine HCl (Cetirizine HCl) 10 Mg Tablet, 10 MG PO DAILY PRN for ALLERGIES, (Reported) Allergies Coded Allergies: ENVIROMENTAL (Verified Allergy, Mild, SNEEZING, 03/26/14) TAPE (Verified Allergy, Mild, RASH, 03/26/14) azithromycin (Verified Adverse Reaction, Intermediate, BLOTCHY, PAINFUL ARM, 04/10/19) GME ATTESTATION GME ATTESTATION My faculty preceptor for this patient encounter was physically present during the encounter and was fully available. All aspects of the patient interview, examination, medical decision making process, and medical care plan development were reviewed and approved by the faculty preceptor. The faculty preceptor is aware and concurs with the plan as stated in the body of this note and will attest to such by his/her cosignature. ATTENDING NOTE I, Connie Mix, have independently examined this patient and performed my own physical exam, as well as reviewed the documentation and edited where necessary. I have discussed in detail with the resident / student the findings and plan of treatment as documented by the resident / student and edited their note. I agree with their findings and treatment plan and have edited their documentat ion. I will continue to follow the patient during this hospital stay. Time spent on discharge 35 minutes Cindy Eastman DO Jul 26, 2021 12:16 CONNIE MIX MD Jul 26, 2021 14:08
== END 2021-07-26 13:20 | disposition home or self-care (01) | DRG 201 ==
LOC: M ED 09:27 → M ED INP 12:10 → ENRESERV 12:50 → M PCU 15:17
PROVIDERS: ADMIT Internal Medicine; ATTEND Internal Medicine
DX: I48.92 Unspecified atrial flutter (principal); I49.5 Sick sinus syndrome; I50.810 Right heart failure, unspecified; J45.901 Unspecified asthma with (acute) exacerbation; J32.9 Chronic sinusitis, unspecified; G47.33 Obstructive sleep apnea (adult) (pediatric); Z90.49 Acquired absence of other specified parts of digestive tract; Z20.822 Contact with and (suspected) exposure to COVID-19; Z79.899 Other long term (current) drug therapy; Z88.1 Allergy status to other antibiotic agents; Z91.048 Other nonmedicinal substance allergy status; Z95.0 Presence of cardiac pacemaker

== ENCOUNTER → 2021-08-07 | Outpatient (CLI) | payer OTHER ==
[~2021-08-07] MED LIST changes: +ADVA230A INH; +ALBU83IN INH; +AMOX875T2 PO; +BENA25CA4 PO; +CARD120C3 PO; +CETI-24 PO; +DIGO0.253 PO; +DILT120C89 PO; +FLON1SPR; +FLUTISP NARES; +HYDR-643 PO; +MUCI600T31 PO; +SPIR12.9 INH; +TORS20TA2 PO; +VENTAER INH
== END ==
LOC: M LABSMTC 11:49
PROVIDERS: ATTEND Anesthesiology
DX: Z01.818 Encounter for other preprocedural examination (principal); Z11.52 Encounter for screening for COVID-19

== ENCOUNTER 2021-08-11 13:59 | Day surgery (SDC) | payer OTHER ==
[~2021-08-11] VITALS: Ht 167.6 cm; Wt 153.7 kg
[~2021-08-11 13:59] MED LIST changes: +LR 1,000 ML IV ONE; +ceFAZolin SOD 1 GM in D5W MINI-BAG PLUS 50 ML IV ONE; +ceFAZolin SOD 2 GM in IV 1 EA IV ONE
[2021-08-11] MEDS ORDERED: LIDOCAINE 2% 100MG/5ML SDV (FOR ANES.) As Ordered ONE (14:15)
[2021-08-11] MEDS ORDERED: propofoL 200 MG/20 ML VIAL As Ordered ONE ×7 (14:15→16:47)
[2021-08-11] MEDS ORDERED: MIDAZOLAM INJ 2MG/2ML VIAL (J2250 PER 1MG) As Ordered ONE (14:15)
[2021-08-11] MEDS ORDERED: fentaNYL 100 MCG/2 ML INJECTION (J3010) As Ordered ONE (14:16)
[2021-08-11] MEDS ORDERED: LIDOCAINE 1% SDV 30ML VIAL As Ordered ONE (14:49)
[2021-08-11] MEDS ORDERED: BACITRACIN OINTMENT 30GM TUBE As Ordered ONE (16:59)
[2021-08-11 18:10] VITALS: BP 178/86
--- NOTE | 2021-08-11 18:51 | RO ---
OPERATIVE NOTE DATE OF OPERATION: 08/11/2021 PREOPERATIVE DIAGNOSIS: Pacemaker battery depletion of dual chamber pacemaker pulse generator. POSTOPERATIVE DIAGNOSIS: Pacemaker battery depletion of dual chamber pacemaker pulse generator. FINDINGS: Pacemaker battery depletion of dual-chamber pacemaker pulse generator. PROCEDURE PERFORMED: Explantation of old and implantation of new dual-chamber pacemaker pulse generator. SURGEON: Justin Erickson M.D. MELTER CASTER: None. ANESTHESIA: Lidocaine 1% local/monitored anesthetic care. SPECIMENS: Old dual-chamber pacemaker pulse generator. ESTIMATED BLOOD LOSS: Less than 10 mL. BLOOD PRODUCTS REPLACED: None. DRAINS: None. COMPLICATIONS: None. PROCEDURE DESCRIPTION: Patient was prepped and draped over the left pectoral region. An incision was made over the existing incision with a PEAK PlasmaBlade and extended about an additional 1 cm laterally. Lidocaine 1% was used for local anesthetic. The PEAK PlasmaBlade was used to get down to the anterior capsule. The suture holding the pacemaker pulse generator in the pocket was cut. The PEAK PlasmaBlade was used for a careful dissection to free up a few cm of the pacemaker leads where they exit the pacemaker pulse generator. This was a difficult dissection due to calcification of the fibrous adhesions/tissue. Once I freed up enough of the leads, I was able to loosen the set screws and remove the terminal pins from the existing pacemaker pulse generator header. These were then plugged into the header of the new pacemaker pulse generator and each one was secured within the header by tightening the set screws using the hex screwdriver. I then took a medium sized Medtronic TYRX antimicrobial envelope and I cut it into four pieces which were placed into the pacemaker pocket. The new pacemaker pulse generator was then placed into the existing pacemaker pocket. The deep layer was closed using individual sutures consisting of 2-0 Vicryl. A few additional 3-0 Vicryl sutures were used to help approximate the more superficial layer. The skin was then approximated using wellington. Next, Bactroban ointment was applied over the incision followed by Telfa and then a sterile dry dressing followed by a bio-occlusive dressing. The patient tolerated the procedure well without any immediate complications. The existing pacemaker pulse generator that was removed was a [employer] model 5826 with serial number [id number] originally implanted 03/18/2009. The new pacemaker pulse generator was a [employer] [facility] [address] [facility] MRI model VD5351 with serial number [id number]. The existing chronic right atrial lead was a [employer] model 1688T/46 with serial number [id number] originally implanted 08/18/2009. Testing in the operating room through the new pacemaker pulse generator for the atrial lead showed a capture threshold of 1.5 volts at 0.4 milliseconds with P wave amplitude of 2.4 millivolts and lead impedance of 405 ohms. The existing chronic right ventricular lead was a [employer] model 1688T. It had serial number [id number] originally implanted 03/18/2009. Testing in the operating room of the right ventricular lead through the new pacemaker pulse generator for the right ventricular lead showed capture threshold of 1.0 volt at 0.4 milliseconds with R wave amplitude of 6.2 millivolts and lead impedance of 497 ohms.
--- NOTE | 2021-08-12 18:03 | ECGEPIP ---
[facility] Test Date: 2021-08-11 Pat Name: TAHIR DON Department: Room: - Gender: Female Lead Trainer: SANJANA : 1960 Requested By: Justin Erickson Order Number: [id number] Reading MD: Dante Pablo Measurements Intervals [place] Rate: 91 P: 43 NE: 148 QRS: 3 QRSD: 80 T: 95 QT: 336 QTc: 413 Interpretive Statements Normal sinus rhythm Left ventricular hypertrophy with repolarization abnormality Compared to 07/23/21 sinus rhythm replaced atrial flutter Electronically Signed on 08-12-2021 18:03:34 EDT by Dante Pablo
[2021-08-13] MEDS ORDERED: propofoL 200 MG/20 ML VIAL As Ordered ONE (08:58)
== END 2021-08-11 18:35 | disposition home or self-care (01) ==
LOC: M SDC 13:59
PROVIDERS: ATTEND Internal Medicine Cardiovascular Disease
DX: Z45.010 Encounter for checking and testing of cardiac pacemaker pulse generator [battery] (principal); I48.92 Unspecified atrial flutter; I49.5 Sick sinus syndrome; I50.810 Right heart failure, unspecified; J45.909 Unspecified asthma, uncomplicated; G47.30 Sleep apnea, unspecified; R06.83 Snoring; F41.9 Anxiety disorder, unspecified; M54.9 Dorsalgia, unspecified; G25.81 Restless legs syndrome; H81.09 Meniere's disease, unspecified ear; Z79.899 Other long term (current) drug therapy; Z79.51 Long term (current) use of inhaled steroids; Z79.01 Long term (current) use of anticoagulants; Z88.1 Allergy status to other antibiotic agents; Z91.048 Other nonmedicinal substance allergy status
CPT/HCPCS: 33228; 93005; C1785; J0690; J2250; J3010

== ENCOUNTER 2021-10-27 11:30 | Emergency (ER) | payer OTHER ==
[~2021-10-27] VITALS: Ht 167.6 cm; Wt 161.8 kg
[~2021-10-27 11:30] MED LIST changes: +DOXY-443 PO; -DOXY1CAP62 PO; -LR 1,000 ML IV ONE; -ceFAZolin SOD 1 GM in D5W MINI-BAG PLUS 50 ML IV ONE; -ceFAZolin SOD 2 GM in IV 1 EA IV ONE
[2021-10-27] MEDS ORDERED: ROCURONIUM BROMIDE 50 MG/5 ML VIAL ONE (11:31)
[2021-10-27] MEDS ORDERED: SUCCINYLCHOLINE 100 MG/5 ML SYRINGE (J0330) ONE (11:31)
[2021-10-27] MEDS ORDERED: propofoL 200 MG/20 ML VIAL ONE (11:31)
[2021-10-27 11:38] VITALS: BP 109/56
[2021-10-27] MEDS ORDERED: CALCIUM GLUCONATE 1,000 MG in D5W MINI-BAG PLUS 100 ML IV ONE ×2 (12:10→13:10)
[2021-10-27] MEDS ORDERED: NS 1,000 ML IV ONE (12:10)
[2021-10-27 12:17] LABS: ABG BASE EXCESS -17.4 (-2.0-2.0); ABG HCO3 8.5 MEQ/L (22.0-26.0); ABG O2 SATURATION 95.5 % (95.0-99.0); ABG PARTIAL PRESSURE CO2 21.8 mmHg (35.0-45.0); ABG STANDARD HCO3 11.6 MEQ/L (22.0-26.0); ABG TOTAL CO2 9.2 MEQ/L (23.0-31.0)
[2021-10-27 12:17] LABS: BASO # 0.1 10^3/uL (0.0-0.2); BASO % 0.6 % (0.0-1.0); EOS % 0.1 % (0.0-3.0); HEMATOCRIT 44.6 % (36.0-47.0); HEMOGLOBIN 13.4 g/dl (12.0-15.5); LYMPH # 2.3 10^3/uL (1.5-5.0); MEAN CORPUSCULAR HEMOGLOBIN 26.9 pg (27.0-33.0); MEAN CORPUSCULAR VOLUME 89.6 fl (80.0-96.0); MONO # 1.3 10^3/uL (0.0-0.8); MONO % 6.9 % (2.0-8.0); NEUTROPHILS # 14.5 10^3/uL (1.5-8.5); NEUTROPHILS % 76.1 % (36.0-66.0); PLATELET COUNT, AUTOMATED 341 10^3/uL (150-450); RED BLOOD COUNT 4.98 10^6/uL (4.00-5.40)
[2021-10-27 12:19] LABS: ABG pH (ARTERIAL) 7.208 UNITS (7.350-7.450)
[2021-10-27] MEDS ORDERED: CHARCOAL ACTIVATED LIQUID 25 GM/120 ML BTL PO ONE (12:35)
[2021-10-27 12:45] LABS: BLOOD UREA NITROGEN 21 MG/DL (7-18); CARBON DIOXIDE LEVEL 9 MEQ/L (21-32); CHLORIDE LEVEL 108 MEQ/L (98-107); CREATININE FOR GFR 1.67 MG/DL (0.55-1.30); GLOMERULAR FILTRATION RATE 33.2 (>45); GLUCOSE, FASTING 213 MG/DL (70-100); POTASSIUM SERUM 4.2 MEQ/L (3.5-5.1); SODIUM LEVEL 137 MEQ/L (136-145)
[2021-10-27 12:46] LABS: ACETAMINOPHEN LEVEL < 2.0 UG/ML (10.0-30.0); ALBUMIN 2.7 GM/DL (3.2-5.2); ALT/SGPT 112 U/L (12-78); BILIRUBIN,DIRECT 0.2 MG/DL (0.0-0.2); BILIRUBIN,TOTAL 0.4 MG/DL (0.2-1.0); CALCIUM LEVEL 7.3 MG/DL (8.8-10.2); ETHYL ALCOHOL (ETHANOL) 0.005 % (0.000-0.010); SALICYLATE LEVEL < 1.7 MG/DL (5.0-30.0); TOTAL PROTEIN 5.5 GM/DL (6.4-8.2)
[2021-10-27 12:52] LABS: RSV AMPLIFICATION NEGATIVE (NEGATIVE)
[2021-10-27] MEDS ORDERED: NOREPINEPHRINE 4 MG/4 ML AMP As Ordered ONE (13:23)
[2021-10-27] MEDS ORDERED: NOREPINEPHRINE BITARTRATE 8 MG in D5W 500 ML IV SCH (13:25)
[2021-10-27] MEDS ORDERED: SODIUM BICARBONATE 8.4% INJ 50 ML SYRINGE IV STA ×6 (13:32→15:06)
[2021-10-27] MEDS ORDERED: SODIUM BICARBONATE 8.4% INJ 50 ML SYRINGE As Ordered ONE (13:33)
[2021-10-27] MEDS ORDERED: EPINEPHrine 1MG/10ML SYRINGE 1.5IN As Ordered ONE (13:43)
[2021-10-27] MEDS ORDERED: MIDAZOLAM 5MG/ML 1ML VIAL (J2250 PER 1MG) As Ordered ONE ×2 (13:46→13:50)
[2021-10-27] MEDS ORDERED: SUCCINYLCHOLINE INJ 200 MG/10 ML VIAL (J0330) IV STA (14:54)
[2021-10-27] MEDS ORDERED: DEXTROSE 50% 50 ML SYRINGE IV STA (14:54)
[2021-10-27] MEDS ORDERED: EPINEPHrine 1MG/10ML SYRINGE 1.5IN IV STA ×4 (14:54→15:06)
[2021-10-27] MEDS ORDERED: MIDAZOLAM 5MG/ML 1ML VIAL (J2250 PER 1MG) IV ONE (14:55)
[2021-10-27] MEDS ORDERED: CALCIUM CHLORIDE 10% 1 GM/10 ML SYR IV STA (16:43)
[2021-10-28] MEDS ORDERED: NOREPINEPHRINE BITARTRATE 8 MG in D5W 492 ML IV SCH (01:00)
== END 2021-10-27 19:30 | disposition expired ==
LOC: M ED 11:30
DX: I46.9 Cardiac arrest, cause unspecified (principal); R57.0 Cardiogenic shock; T46.1X2A Poisoning by calcium-channel blockers, intentional self-harm, initial encounter; Y92.018 Other place in single-family (private) house as the place of occurrence of the external cause; J45.909 Unspecified asthma, uncomplicated; I48.92 Unspecified atrial flutter; E66.9 Obesity, unspecified
CPT/HCPCS: 31500; 36556; 36600; 71045; 80048; 80076; 80143; 82077; 82550; 82803; 84443; 85025; 87631; 92950; 93005; 93041; 96365; 96368; 96375; 96376; 99291; 99292; J0330; J0610; J2250